=== PATIENT | female | born 1965 | race Caucasian/White ===

== ENCOUNTER → 2018-09-24 | Day surgery (SDC) | payer MEDICARE, OTHER ==
[2018-09-19 11:04] VITALS: BMI 38.0
[~2018-09-24] MED LIST: ALPRAZolam 0.25 MG TAB PO PRN; ALPRAZolam 0.5 MG TAB PO PRN; ASPIRIN 325 MG TAB PO STA; ATORVASTATIN 80 MG TAB PO STA; HEPARIN SODIUM 1,000 UN/ML (10ML VL) ONE; IOPAMIDOL-370 125ML BTL INJ ONE; IV FLUID CONTINUATION 950 ML IV ONE; LIDOCAINE 1% INJ 10MG/ML (20 ML MDV) ONE; LIDOCAINE 1% INJ 10MG/ML (20 ML MDV) SQ ONE; MIDAZOLAM 2 MG/2 ML VIAL IV ONE; MIDAZOLAM 2 MG/2 ML VIAL ONE; NITROGLYCERIN SL TABS 0.4 MG TAB SUBLINGUAL PRN; RX INFO: IV CONTRAST WAS GIVEN 1 EACH MISC MISCELLANE PRN; SODIUM CHLORIDE 0.9% 1,000 ML IV SCH; SODIUM CHLORIDE 0.9% 1,000 ML in EMPTY BAG 1 BAG IV ONE; VERAPAMIL 2.5 MG/ML 2 ML AMP ONE; VERAPAMIL SYRINGE (5 MG/10 ML) INTRAARTER ONE
[2018-09-24 12:07] VITALS: RESP 20
[2018-09-24 13:11] LABS: Glucose,Whole Blood 179 mg/dL (75-99)
--- NOTE | 2018-09-24 13:19 | LTR ---
September 24, 2018 Re: Tahmina Osorio Dear Dr. Cedeño: Ms. Tahmina Osorio continued to have chest discomfort. As you know, she does have diabetes, hypertension, and dyslipidemia. Given her ongoing chest discomfort and multiple risk factors for CAD, I did proceed with a heart catheterization on her. The heart catheterization showed normal coronaries. I want to thank you for allowing me to participate in her care and please do not hesitate to call if you have any question or concern. Sincerely, MD CHAU Green[place] / SAIGE: [id number] /
--- NOTE | 2018-09-24 14:04 | CC ---
CARDIAC CATHETERIZATION REPORT DATE OF SERVICE: 09/24/2018 PERFORMING PHYSICIAN: Silvestre Martin MD, Wireless Sales Associate. PROCEDURE PERFORMED: 1. Selective right and left coronary angiogram. 2. Left heart catheterization. INDICATION: This is a pleasant 52-year-old female patient with known diabetes, hypertension, and dyslipidemia who continues to struggle with chest discomfort in spite of maximized medical treatment. Given her risk factors and the continuous chest discomfort, I would recommend proceeding with coronary angiogram. APPROACH: Right radial artery. COMPLICATION: None. LEVEL OF SEDATION: Moderate sedation length of 14 minutes. PROCEDURE DESCRIPTION: After obtaining an informed consent, the patient was brought to the cardiac optical laboratory manager. The right radial artery was cannulated using micropuncture technique and a micropuncture wire passed easily, then I placed a 5-Comoran sheath in the right radial artery. After that, I gave the patient 2 mg of verapamil IA and 9,000 units of heparin IV. Selective right and left coronary angiogram was performed. After that, using JR4 and JL3.5 catheters, left heart catheterization was performed using 5-[place]or[place] pigtail catheter. The procedure was completed without any complication. SELECTIVE CORONARY ANGIOGRAM: 1. The right coronary artery is a large caliber vessel. It is a dominant vessel. The RCA is angiographically normal. It distally bifurcates into PDA and PLV branches, both are angiographically normal. 2. The left main is angiographically normal. It bifurcates into the left circumflex, ramus intermedius, and left anterior descending artery. 3. The left circumflex is a large caliber vessel. It is a nondominant vessel. The proximal circumflex appeared to be angiographically normal. The mid circumflex is normal and gives rise into two obtuse marginal branches, appeared to be angiographically normal and the circumflex continued after that as a small-caliber vessel in the AV groove. 4. The ramus intermedius is a moderate caliber vessel and seems to be angiographically normal. 5. The LAD, the proximal LAD is angiographically normal. The mid LAD is normal and gives rise into a large diagonal branch which appeared to be angiographically normal. The LAD distally appeared to be angiographically normal. HEMODYNAMICS: The left ventricular end-diastolic pressure was 10 mmHg and no significant gradient was seen across the aortic valve. CONCLUSION: 1. Normal coronary angiogram. 2. Normal left ventricular end-diastolic pressure. 3. No significant gradient across aortic valve. POSTPROCEDURE MANAGEMENT: 1. Medical treatment. 2. Follow up with the patient. CHAU / MAHNAZN: [id number] /
[2018-09-24 16:26] VITALS: TEMP 97.8
[2018-09-24 16:29] VITALS: PULSE 80
[2018-09-24 17:23] VITALS: BP 115/69
== END ==
LOC: CATHCVL 10:51
PROVIDERS: ATTEND Internal Medicine Interventional Cardiology
DX: I20.0 Unstable angina (principal); I11.0 Hypertensive heart disease with heart failure; I50.32 Chronic diastolic (congestive) heart failure; E66.9 Obesity, unspecified; Z68.38 Body mass index [BMI] 38.0-38.9, adult; E11.9 Type 2 diabetes mellitus without complications; Z79.84 Long term (current) use of oral hypoglycemic drugs; E78.5 Hyperlipidemia, unspecified; Z82.49 Family history of ischemic heart disease and other diseases of the circulatory system; Z79.899 Other long term (current) drug therapy; Z88.2 Allergy status to sulfonamides
CPT/HCPCS: 93458; C1769 ×2; C1894; J2250; J2001; J1644; Q9967

== ENCOUNTER 2019-09-11 13:48 | Day surgery (SDC) | payer MEDICARE, OTHER ==
[2019-09-11] MEDS ORDERED: LACTATED RINGERS 1,000 ML IV SCH (14:17)
[2019-09-11] MEDS ORDERED: ONDANSETRON 4 MG/2 ML VIAL IVP PRN (14:17)
[2019-09-11] MEDS ORDERED: HYDROmorphone 0.5 MG/0.5 ML SYRINGE IVP PRN (14:17)
[2019-09-11 14:29] VITALS: RESP 16; TEMP 97.9
[2019-09-11] MEDS ORDERED: LIDOCAINE 1% 20 ML VIAL (10MG/ML) FOR IV START INTRADERMA ONE (14:42)
[2019-09-11 14:44] LABS: Glucose,Whole Blood 116 mg/dL (75-99)
[2019-09-11] MEDS ORDERED: LIDOCAINE 1% INJ 10MG/ML (20 ML MDV) ONE (15:21)
[2019-09-11] MEDS ORDERED: PROPOFOL 10 MG/ML 20 ML VIAL IV ONE (15:21)
[2019-09-11] MEDS ORDERED: KETAMINE 10 MG/ML 20 ML VIAL ONE (15:21)
--- NOTE | 2019-09-11 15:51 | P.PCN ---
Date of Procedure: 09/11/19 Description of Procedure: BRIEF HISTORY: Patient is a 58-year-old female who presents for outpatient evaluation with EGD of symptoms of epigastric abdominal pain, and diarrhea. PROCEDURE PERFORMED: Esophagogastroduodenoscopy with biopsy. PREOPERATIVE DIAGNOSIS: Diarrhea, epigastric abdominal pain. ESTIMATED BLOOD LOSS: Minimal. IV sedation per anesthesia. PROCEDURE: After informed consent was obtained, the patient was brought into the endoscopy unit. IV sedation was administered by Anesthesia under continuous monitoring. Initially the Olympus GIF-190 video endoscope was inserted into the mouth. Esophagus intubated without any difficulty. It was gradually advanced into the stomach and duodenum and carefully examined. The bulb and the second part of the duodenum appeared normal, with biopsies taken to rule out celiac sprue. The scope at this time was withdrawn to the stomach, adequately insufflated with air, and upon careful examination, mucosa of the antrum, body, cardia and the fundus appeared normal, except for some mild scattered erythema in the antrum an d body suggestive of mild gastritis with biopsies taken. A few diminutive gastric polyps were seen and biopsied. The scope was then withdrawn into the esophagus. The GE junction was located at 36 cm from the incisors and biopsied. The esophagus appeared normal. There were no erosions or ulcerations seen and the patient tolerated the procedure well. IMPRESSION: 1. Mild gastritis antrum and body, biopsied. 2. Gastric polyps (likely fundic gland polyps, biopsied. 3. Duodenal biopsies. 4. GE junction biopsies. RECOMMENDATIONS: The findings of this examination were discussed with the patient and her friend. Okay to resume diet and medications. Await pathology from biopsies. Follow up in gastroenterology clinic as previously scheduled.
[2019-09-11 16:14] VITALS: BP 134/84; PULSE 84
== END 2019-09-11 16:35 | disposition home or self-care (01) ==
LOC: ORWHC2ENDO 13:48
PROVIDERS: ATTEND Internal Medicine
DX: K29.50 Unspecified chronic gastritis without bleeding (principal); K31.7 Polyp of stomach and duodenum; I11.0 Hypertensive heart disease with heart failure; I50.9 Heart failure, unspecified; I25.10 Atherosclerotic heart disease of native coronary artery without angina pectoris; J45.909 Unspecified asthma, uncomplicated; I77.6 Arteritis, unspecified; F41.9 Anxiety disorder, unspecified; F32.9 Major depressive disorder, single episode, unspecified; G62.9 Polyneuropathy, unspecified; Z88.2 Allergy status to sulfonamides; Z79.899 Other long term (current) drug therapy; Z90.49 Acquired absence of other specified parts of digestive tract; Z87.19 Personal history of other diseases of the digestive system; Z98.890 Other specified postprocedural states; Z98.41 Cataract extraction status, right eye; Z98.42 Cataract extraction status, left eye
CPT/HCPCS: 43239; 88305; J2001; J2704

== ENCOUNTER 2022-03-05 23:00 | Emergency (ER) | payer MEDICARE, OTHER ==
[2022-03-06 01:07] VITALS: TEMP 97.6
--- NOTE | 2022-03-06 02:47 | ED ---
Psych HPI - General Chief Complaint: Psychiatric Symptoms Stated Complaint: Mental Health Time Seen by Provider: 03/06/22 01:28 Source: patient Mode of arrival: ambulatory - History of Present Illness MD Complaint: suicidal ideation, feels depressed -: days(s) Associated Psychiatric Symptoms: depression Quality: constant Improves With: none Worsens With: none Associated Symptoms: denies other symptoms - Related Data Home Medications Medication Instructions Recorded Confirmed Albuterol Nebulized [Ventolin 2.5 mg INHALATION DAILY 05/11/14 09/11/19 Nebulized] DULoxetine HCL [Cymbalta] 60 mg PO QAM 08/02/16 09/11/19 Furosemide [Lasix] 40 mg PO HS 08/02/16 09/11/19 Metoprolol Tartrate [Lopressor] 12.5 mg PO BID 08/02/16 09/11/19 Oxybutynin Xl [Ditropan XL] 5 mg PO DAILY 08/02/16 09/11/19 Potassium Chloride ER [K-Dur 20] 20 meq PO HS 08/02/16 09/11/19 Furosemide [Lasix] 80 mg PO DAILY 09/19/18 09/11/19 Lurasidone [Latuda] 40 mg PO DAILY 09/19/18 09/11/19 Omeprazole 20 mg PO DAILY 09/19/18 09/11/19 Potassium Chloride ER [K-Dur 20] 40 meq PO QAM 09/19/18 09/11/19 Saxagliptin HCl [Onglyza] 5 mg PO DAILY 09/11/19 09/11/19 metFORMIN HCL [Glucophage] 500 mg PO BID 09/11/19 09/11/19 Previous Rx's Medication Instructions Recorded lisinopriL [Zestril] 2.5 mg PO DAILY #30 tab 08/07/16 Allergies Allergy/AdvReac Type Severity Reaction Status Date / Time sulfamethoxazole Allergy Rash/Hives Verified 03/06/22 01:07 [From Bactrim] trimethoprim [From Bactrim] Allergy Rash/Hives Verified 03/06/22 01:07 Review of Systems ROS Statement: Those systems with pertinent positive or pertinent negative responses have been documented in the HPI. ROS Other: All systems not noted in ROS Statement are negative. Constitutional: Denies: fever Respiratory: Denies: cough, dyspnea Cardiovascular: Denies: chest pain, palpitations Gastrointestinal: Denies: abdominal pain, vomiting, diarrhea Genitourinary: Denies: dysuria, hematuria Musculoskeletal: Denies: back pain Neurological: Denies: headache, weakness Psychiatric: Reports: depression, suicidal thoughts. Denies: auditory hallucinations, visual hallucinations, homicidal thoughts Past Medical History Past Medical History: Asthma, Chest Pain / Angina, Heart Failure, Diabetes Mellitus, Eye Disorder, Hypertension, Osteoarthritis (OA), Vascular Disorder Additional Past Medical History / Comment(s): VASCULITIS STATES IN REMISSION, NEUROPATHY TIESHA LEGS, LIMITED VISION TIESHA EYES, EDEMA TIESHA LEGS, SOB WITH ACTIVITY History of Any Multi-Drug Resistant Organisms: None Reported Past Surgical History: Cholecystectomy, Heart Catheterization With Stent, Orthopedic Surgery Additional Past Surgical History / Comment(s): ARTHOSCOPY TIESHA KNEES, WRISTS SX, CATARACT SX TIESHA, SKIN BX Past Anesthesia/Blood Transfusion Reactions: No Reported Reaction Additional Past Anesthesia/Blood Transfusion Reaction / Comment(s): STATES "HARD TIME WAKING UP" Date of Last Stent Placement:: 2013 Past Psychological History: Anxiety, Depression Smoking Status: Never smoker Past Alcohol Use History: None Reported Past Drug Use History: None Reported - Past Family History Mother Family Medical History: No Reported History General Exam General appearance: alert, in no apparent distress Head exam: Present: atraumatic, normocephalic Eye exam: Present: normal appearance. Absent: scleral icterus, conjunctival injection Respiratory exam: Present: normal lung sounds bilaterally. Absent: respiratory distress, wheezes, rales, rhonchi, stridor Cardiovascular Exam: Present: regular rate, normal rhythm, normal heart sounds. Absent: systolic murmur, diastolic murmur, rubs, gallop GI/Abdominal exam: Present: soft. Absent: distended, tenderness, guarding Extremities exam: Present: normal inspection, normal capillary refill Neurological exam: Present: alert Psychiatric exam: Present: depressed, suicidal ideation. Absent: anxious, flat affect, manic, homicidal ideation Skin exam: Present: warm, dry, intact, normal color. Absent: rash Course Vital Signs 03/06/22 01:02 Temperature 97.6 F Pulse Rate 63 Respiratory 19 Rate Blood Pressure 172/82 O2 Sat by Pulse 100 Oximetry Disposition Clinical Impression: Depression Disposition: HOME SELF-CARE Condition: Good Instructions (If sedation given, give patient instructions): Mood Disorders (ED) Is patient prescribed a controlled substance at d/c from ED?: No Referrals: Elsa Cedeño MD [Primary Care Provider] - 1-2 days
[2022-03-06 05:38] VITALS: BP 142/84; PULSE 64; RESP 18
== END 2022-03-06 05:42 | disposition home or self-care (01) ==
LOC: EC 23:00
DX: F32.A Depression, unspecified (principal); J45.909 Unspecified asthma, uncomplicated; E11.9 Type 2 diabetes mellitus without complications; I10 Essential (primary) hypertension; Z88.2 Allergy status to sulfonamides; Z88.1 Allergy status to other antibiotic agents
CPT/HCPCS: 82075; 99284

== ENCOUNTER 2023-02-22 13:36 | Inpatient (IN) | payer MEDICARE, OTHER ==
--- NOTE | 2023-02-22 14:40 | ED ---
Skin/Abscess/FB HPI - General Chief complaint: Skin/Abscess/Foreign Body Stated complaint: cellulitis on buttocks Time Seen by Provider: 02/22/23 14:29 Source: patient, RN notes reviewed, old records reviewed Mode of arrival: wheelchair Limitations: no limitations - History of Present Illness Initial comments: This is a nontoxic-appearing 57-year-old female that presents to the emergency room, sent by her visiting nurse for rash to her genitals. Patient states that she has been on topical powders and creams with no improvement. This is been ongoing since October. She is seeing Dr. Yeboah and Dr. Cedeño. Does have a history of asthma, chest pain, diabetes, COPD and vasculitis. MD complaint: rash -: month(s) (4) Location: buttocks, genitals Severity scale (1-10): 5 Quality: constant Consistency: constant Improves with: none Associated symptoms: denies other symptoms Treatments Prior to Arrival: OTC topical medication - Related Data Home Medications Medication Instructions Recorded Confirmed Albuterol Nebulized [Ventolin 2.5 mg INHALATION RT-QID PRN 05/11/14 02/22/23 Nebulized] DULoxetine HCL [Cymbalta] 60 mg PO BID 08/02/16 02/22/23 Oxybutynin Xl [Ditropan XL] 5 mg PO DAILY 08/02/16 02/22/23 Potassium Chloride ER [K-Dur 20] 20 meq PO TID 08/02/16 02/22/23 Furosemide [Lasix] 80 mg PO DAILY 09/19/18 02/22/23 Saxagliptin HCl [Onglyza] 5 mg PO DAILY 09/11/19 02/22/23 metFORMIN HCL [Glucophage] 500 mg PO BID 09/11/19 02/22/23 Acetaminophen Tab [Tylenol Tab] 1,000 mg PO Q6HR PRN 02/22/23 02/22/23 Acetaminophen-Codeine 300-30mg 1 tab PO Q6H PRN 02/22/23 02/22/23 [Tylenol w/codeine #3] Aspirin EC [Ecotrin Low Dose] 81 mg PO DAILY 02/22/23 02/22/23 Budesonide/Formoterol Fumarate 2 puff INHALATION RT-BID PRN 02/22/23 02/22/23 [Symbicort 80-4.5 Mcg Inhaler] Cephalexin [Keflex] 500 mg PO QID 02/22/23 02/22/23 Dicyclomine [Bentyl] 10 mg PO TID PRN 02/22/23 02/22/23 Fluticasone Nasal [place] [Flonase 2 spray EA NOSTRIL DAILY 02/22/23 02/22/23 Nasal [place]] Lurasidone [Latuda] 80 mg PO HS 02/22/23 02/22/23 Metoprolol Tartrate [Lopressor] 12.5 mg PO BID 02/22/23 02/22/23 Midodrine [ProAmatine] 2.5 mg PO BID 02/22/23 02/22/23 Montelukast [Singulair] 10 mg PO DAILY 02/22/23 02/22/23 Nitroglycerin Sl Tabs [Nitrostat] 0.4 mg SUBLINGUAL Q5M PRN 02/22/23 02/22/23 Nystatin [Nystop] 1 applic TOPICAL BID 02/22/23 02/22/23 OLANZapine [ZyPREXA] 5 mg PO BID 02/22/23 02/22/23 Repaglinide [Prandin] 1 mg PO TID 02/22/23 02/22/23 Rosuvastatin [Crestor] 10 mg PO HS 02/22/23 02/22/23 metOLazone [Zaroxolyn] 2.5 mg PO DAILY 02/22/23 02/22/23 Allergies Allergy/AdvReac Type Severity Reaction Status Date / Time sulfamethoxazole Allergy Rash/Hives Verified 02/22/23 15:30 [From Bactrim] trimethoprim [From Bactrim] Allergy Rash/Hives Verified 02/22/23 15:30 Review of Systems ROS Statement: Those systems with pertinent positive or pertinent negative responses have been documented in the HPI. ROS Other: All systems not noted in ROS Statement are negative. Past Medical History Past Medical History: Asthma, Chest Pain / Angina, Heart Failure, COPD, Diabetes Mellitus, Eye Disorder, Hypertension, Osteoarthritis (OA), Vascular Disorder Additional Past Medical History / Comment(s): VASCULITIS STATES IN REMISSION, NEUROPATHY TIESAH LEGS, LIMITED VISION TIESHA EYES, EDEMA TIESHA LEGS, SOB WITH ACTIVITY History of Any Multi-Drug Resistant Organisms: None Reported Past Surgical History: Cholecystectomy, Heart Catheterization With Stent, Orthopedic Surgery Additional Past Surgical History / Comment(s): ARTHOSCOPY TIESHA KNEES, WRISTS SX, CATARACT SX TIESHA, SKIN BX Past Anesthesia/Blood Transfusion Reactions: No Reported Reaction Additional Past Anesthesia/Blood Transfusion Reaction / Comment(s): STATES "HARD TIME WAKING UP" Date of Last Stent Placement:: 2013 Past Psychological History: Anxiety, Depression Smoking Status: Never smoker Past Alcohol Use History: None Reported Past Drug Use History: None Reported - Past Family History Mother Family Medical History: No Reported History General Exam Limitations: no limitations General appearance: alert, in no apparent distress Head exam: Present: atraumatic Eye exam: Present: normal appearance. Absent: scleral icterus, conjunctival injection, periorbital swelling, periorbital tenderness Respiratory exam: Absent: respiratory distress, accessory muscle use Cardiovascular Exam: Present: regular rate GI/Abdominal exam: Present: soft. Absent: distended, tenderness, guarding, rebound, rigid Extremities exam: Present: full ROM, normal capillary refill. Absent: tenderness, pedal edema Neurological exam: Present: alert, oriented X3 Psychiatric exam: Present: normal affect, normal mood Skin exam: Present: warm, rash (Cellulitis bilateral groin, mons pubis, perirectal, approximately 0.5cm fissure ) Course Vital Signs 02/22/23 13:38 Temperature 98.1 F Pulse Rate 83 Respiratory 20 Rate Blood Pressure 106/69 O2 Sat by Pulse 97 Oximetry Medical Decision Making - Medical Decision Making Labs show no evidence of leukocytosis. Sodium is 121, potassium is 2.6, chloride is 69, CO2 of 40, creatinine 1.15, lactic acid negative. Patient is on diuretics. Serum and urine osmolality was ordered. She was given potassium supplementation and IV fluids 0.9 normal saline. Patient will be admitted with hypokalemia, hyponatremia, hypochloremia and cellulitis. Antibiotics were started for cellulitis. Dr. Yeboah placed on consult. Case discussed with Dr. Morales Was pt. sent in by a medical professional or institution ([facility], TALENT ACQUISITION ASSOCIATE, urgent care, hospital, or fdc...) When possible be specific @ -home care nurse Did you speak to anyone other than the patient for history (EMS, parent, family, police, friend...)? What history was obtained from this source @ -No Did you review nursing and triage notes (agree or disagree)? Why? @ -I reviewed and agree with nursing and triage notes Were old charts reviewed (outside hosp., previous admission, EMS record, old EKG, old radiological studies, urgent care reports/EKG's, fdc records)? Report findings @ -No old charts were reviewed Differential Diagnosis (chest pain, altered mental status, abdominal pain women, abdominal pain men, vaginal bleeding, weakness, fever, dyspnea, syncope, headache, dizziness, GI bleed, back pain, seizure, CVA, palpatations, mental health, musculoskeletal)? @ -Cellulitis, Berenice's gangrene, dehydration, abscess, electrolyte abnormality EKG interpreted by me (3pts min.). @ -n/a X-rays interpreted by me (1pt min.). @ -None done CT interpreted by me (1pt min.). @ -None done U/S interpreted by me (1pt. min.). @ -None done What testing was considered but not performed or refused? (CT, X-rays, U/S, labs)? Why? @ -None What meds were considered but not given or refused? Why? @ -None Did you discuss the management of the patient with other professionals (professionals i.e. , PA, TALENT ACQUISITION ASSOCIATE, lab, RT, psych nurse, social studies teacher, tile shader, teacher, animal park code enforcement officer, pillowcase cutter)? Give summary @ -No Was smoking cessation discussed for >3mins.? @ -No Was critical care preformed (if so, how long)? @ -No Were there social determinants of health that impacted care today? How? (Homelessness, low income, unemployed, alcoholism, drug addiction, transportation, low edu. Level, literacy, decrease access to med. care, [facility], rehab)? @ -No Was there de-escalation of care discussed even if they declined (Discuss DNR or withdrawal of care, Hospice)? DNR status @ -No What co-morbidities impacted this encounter? (DM, HTN, Smoking, COPD, CAD, Cancer, CVA, ARF, Chemo, Hep., AIDS, mental health diagnosis, sleep apnea, morbid obesity)? @ -Asthma, diabetes, COPD, vasculitis Was patient admitted / discharged? Hospital course, mention meds given and route, prescriptions, significant lab abnormalities, going to OR and other p ertinent info. @ -Admitted Undiagnosed new problem with uncertain prognosis? @ -No Drug Therapy requiring intensive monitoring for toxicity (Heparin, Nitro, Insulin, Cardizem)? @ -No Were any procedures done? @ -No Diagnosis/symptom? @ -Cellulitis, hyponatremia, hypokalemia, hypochloremia Acute, or Chronic, or Acute on Chronic? @ -Acute Uncomplicated (without systemic symptoms) or Complicated (systemic symptoms)? @ -Uncomplicated Side effects of treatment? @ -No Exacerbation, Progression, or Severe Exacerbation? @ -No Poses a threat to life or bodily function? How? (Chest pain, [place], [place], pneumonia, PE, COPD, DKA, ARF, appy, cholecystitis, CVA, Diverticulitis, Homicidal, Suicidal, threat to staff... and all critical care pts) @ -No - Lab Data Result diagrams: 02/22/23 14:51 02/22/23 14:51 Lab Results 02/22/23 02/22/23 02/22/23 Range/Units 14:51 14:51 14:51 WBC 10.5 (3.8-10.6) k/uL RBC 3.98 (3.80-5.40) m/uL Hgb 11.8 (11.4-16.0) gm/dL Hct 32.2 L (34.0-46.0) % MCV 80.8 (80.0-100.0) fL MCH 29.7 (25.0-35.0) pg MCHC 36.8 (31.0-37.0) g/dL RDW 12.7 (11.5-15.5) % Plt Count 528 H (150-450) k/uL MPV 7.1 Neutrophils % 86 % Lymphocytes % 6 % Monocytes % 6 % Eosinophils % 1 % Basophils % 0 % Neutrophils # 9.0 H (1.3-7.7) k/uL Lymphocytes # 0.7 L (1.0-4.8) k/uL Monocytes # 0.6 (0-1.0) k/uL Eosinophils # 0.1 (0-0.7) k/uL Basophils # 0.0 (0-0.2) k/uL Hyperchromasia Slight Sodium 121 L (137-145) mmol/L Potassium 2.6 L* (3.5-5.1) mmol/L Chloride 69 L* (98-107) mmol/L Carbon Dioxide 40 H (22-30) mmol/L Anion Gap 12 mmol/L BUN 13 (7-17) mg/dL Creatinine 1.15 H (0.52-1.04) mg/dL Est GFR (CKD-EPI)AfAm 62 (>60 ml/min/1.73 sqM) Est GFR (CKD-EPI)NonAf 53 (>60 ml/min/1.73 sqM) Glucose 103 H (74-99) mg/dL Plasma Lactic Acid Mat 1.8 (0.7-2.0) mmol/L Calcium 8.5 (8.4-10.2) mg/dL Total Bilirubin 0.4 (0.2-1.3) mg/dL AST 27 (14-36) U/L ALT 18 (4-34) U/L Alkaline Phosphatase 97 (38-126) U/L Total Protein 6.9 (6.3-8.2) g/dL Albumin 3.9 (3.5-5.0) g/dL Disposition Clinical Impression: Cellulitis of perineum, Hypokalemia, Hyponatremia, Hypochloremia Disposition: ADMITTED IP TO THIS HOSP Referrals: Elsa Cedeño MD [Primary Care Provider] - 1-2 days Decision Date: 02/22/23 Decision Time: 15:50
[2023-02-22 15:14] LABS: Albumin 3.9 g/dL (3.5-5.0); Calcium 8.5 mg/dL (8.4-10.2); Total Bilirubin 0.4 mg/dL (0.2-1.3); Total Protein 6.9 g/dL (6.3-8.2)
[2023-02-22 15:24] LABS: Potassium 2.6 mmol/L (3.5-5.1)
[2023-02-22] MEDS ORDERED: Potassium Replacement Protocol 1 EACH MISC MISCELLANE PRN (15:42)
[2023-02-22] MEDS ORDERED: SODIUM CHLORIDE 0.9% 1,000 ML IV SCH (15:45)
[2023-02-22] MEDS ORDERED: cefTRIAXone IN SWFI 1,000 MG/10 ML SYRINGE IVP STA (15:47)
[2023-02-22] MEDS ORDERED: metroNIDAZOLE-NS PMX 500 MG in SALINE 1 100ML.BAG IVPB STA (15:49)
[2023-02-22 15:58] LABS: Basophils % (A) 0 %; Eosinophils # (A) 0.1 k/uL (0-0.7); Eosinophils % (A) 1 %; HCT 32.2 % (34.0-46.0); HGB 11.8 gm/dL (11.4-16.0); Hyperchromasia Slight; Lymphocytes # (A) 0.7 k/uL (1.0-4.8); Lymphocytes % (A) 6 %; MCH 29.7 pg (25.0-35.0); MCHC 36.8 g/dL (31.0-37.0); MCV 80.8 fL (80.0-100.0); Mean Platelet Volume 7.1; Monocytes # (A) 0.6 k/uL (0-1.0); Monocytes % (A) 6 %; Neutrophils % (A) 86 %; Platelet Count 528 k/uL (150-450); RBC 3.98 m/uL (3.80-5.40); RDW 12.7 % (11.5-15.5); WBC 10.5 k/uL (3.8-10.6)
[2023-02-22] MEDS ORDERED: NALOXONE 0.4 MG/ML 1 ML VIAL IV PRN (16:09)
[2023-02-22] MEDS ORDERED: ACETAMINOPHEN TAB 325 MG TAB PO PRN (16:09)
[2023-02-22] MEDS: POTASSIUM BICARBONATE/CIT AC 20 MEQ TABLET.EFF NG-TUBE SCH ×3 (16:22→19:17)
[2023-02-22] MEDS: POTASSIUM CHLORIDE ER 20 MEQ TAB.ER PO SCH ×3 (16:22→19:17)
[2023-02-22] MEDS ORDERED: DICYCLOMINE 10 MG CAP PO PRN (18:51)
[2023-02-22] MEDS ORDERED: SYMBICORT 80-4.5 MCG INHALER INHALATION PRN (18:51)
[2023-02-22] MEDS ORDERED: ALBUTEROL NEBULIZED 2.5 MG/3 ML INHALATION PRN (18:51)
[2023-02-22] MEDS ORDERED: NITROGLYCERIN SL TABS 0.4 MG TAB SUBLINGUAL PRN (18:51)
[2023-02-22] MEDS ORDERED: DEXTROSE 50% SYRINGE 50 ML IVP PRN ×2 (19:01)
[2023-02-22] MEDS ORDERED: DULoxetine HCL 60 MG CAPSULE.DR PO SCH (21:00)
[2023-02-22 21:11] LABS: African American GFR (CKD) 75 (>60 ml/min/1.73 sqM); Blood Urea Nitrogen 12 mg/dL (7-17); Calcium 8.4 mg/dL (8.4-10.2); Glucose 144 mg/dL (74-99); Magnesium 1.3 mg/dL (1.6-2.3); Non-African American GFR(CKD) 65 (>60 ml/min/1.73 sqM)
[2023-02-22 21:17] LABS: Anion Gap 15 mmol/L; Carbon Dioxide 37 mmol/L (22-30)
[2023-02-22 21:20] LABS: Chloride 66 mmol/L (98-107); Sodium 118 mmol/L (137-145)
[2023-02-22] MEDS: INSULIN ASPART (NovoLOG) 100 UNIT/ML VIAL SQ SCH (21:23)
[2023-02-22 21:32] LABS: Glucose,Whole Blood 139 mg/dL (70-110)
[2023-02-22] MEDS ORDERED: Magnesium Replacement Protocol 1 EACH MISC MISCELLANE PRN (21:34)
[2023-02-22] MEDS: Acetaminophen-Codeine 300-30mg TAB PO PRN (21:36)
[2023-02-22] MEDS: ATORVASTATIN 20 MG TAB PO SCH (21:36)
[2023-02-22] MEDS: METOPROLOL TARTRATE 12.5 MG TAB PO SCH (21:36)
[2023-02-22] MEDS ORDERED: SODIUM CHLORIDE TAB 1 GM TAB PO STA (22:06)
[2023-02-22] MEDS: MAGNESIUM SULFATE-D5W PMX 1 GM in DEXTROSE/WATER 1 100ML.BAG IVPB SCH ×2 (22:21→22:58)
[2023-02-22 23:51] LABS: African American GFR (CKD) 75 (>60 ml/min/1.73 sqM); Anion Gap 11 mmol/L; Blood Urea Nitrogen 12 mg/dL (7-17); Calcium 8.3 mg/dL (8.4-10.2); Glucose 103 mg/dL (74-99); Non-African American GFR(CKD) 65 (>60 ml/min/1.73 sqM); Potassium 3.4 mmol/L (3.5-5.1)
[2023-02-22 23:57] LABS: Carbon Dioxide 40 mmol/L (22-30)
[2023-02-23] MEDS: HEPARIN SODIUM,PORCINE/PF 5,000 UNIT/0.5 ML SYRINGE SQ SCH ×4 (00:07→23:32)
[2023-02-23] MEDS: MAGNESIUM SULFATE-D5W PMX 1 GM in DEXTROSE/WATER 1 100ML.BAG IVPB SCH ×2 (00:08→01:40)
[2023-02-23 00:49] LABS: Sodium 117 mmol/L (137-145)
[2023-02-23 00:50] LABS: Chloride 66 mmol/L (98-107)
[2023-02-23] MEDS: Acetaminophen-Codeine 300-30mg TAB PO PRN ×2 (06:04→16:37)
[2023-02-23] MEDS: metFORMIN 500 MG TAB PO SCH ×2 (06:04→17:23)
[2023-02-23] MEDS: MIDODRINE 5 MG TAB PO SCH ×2 (06:04→17:23)
[2023-02-23 06:10] LABS: Glucose,Whole Blood 124 mg/dL (70-110)
[2023-02-23] MEDS: INSULIN ASPART (NovoLOG) 100 UNIT/ML VIAL SQ SCH ×4 (07:52→22:08)
[2023-02-23] MEDS: REPAGLINIDE 1 MG TAB PO SCH ×3 (07:52→17:23)
[2023-02-23 08:28] LABS: African American GFR (CKD) >90 (>60 ml/min/1.73 sqM); Blood Urea Nitrogen 11 mg/dL (7-17); Calcium 8.7 mg/dL (8.4-10.2); Glucose 128 mg/dL (74-99); Magnesium 2.5 mg/dL (1.6-2.3); Non-African American GFR(CKD) 85 (>60 ml/min/1.73 sqM); Potassium 2.9 mmol/L (3.5-5.1); Sodium 120 mmol/L (137-145)
[2023-02-23 08:35] LABS: Anion Gap 11 mmol/L; Carbon Dioxide 38 mmol/L (22-30)
[2023-02-23 08:40] LABS: Chloride 71 mmol/L (98-107)
[2023-02-23] MEDS: METOPROLOL TARTRATE 12.5 MG TAB PO SCH ×2 (08:50→22:08)
[2023-02-23] MEDS: POTASSIUM CHLORIDE ER 20 MEQ TAB.ER PO SCH ×7 (08:50→22:08)
[2023-02-23] MEDS: FAMOTIDINE 20 MG TAB PO SCH (08:50)
[2023-02-23] MEDS: MONTELUKAST 10 MG TAB PO SCH (08:50)
[2023-02-23] MEDS: LINAGLIPTIN 5 MG TABLET PO SCH (08:50)
[2023-02-23] MEDS: ASPIRIN 81 MG PO SCH (08:50)
[2023-02-23] MEDS: FLUTICASONE 50MCG/SPRAY NASAL 16GM EA NOSTRIL SCH (08:53)
[2023-02-23] MEDS ORDERED: OXYBUTYNIN XL 5 MG TAB.ER.24 PO SCH (09:00)
[2023-02-23 11:23] LABS: Glucose,Whole Blood 104 mg/dL (70-110)
[2023-02-23] MEDS ORDERED: SODIUM CHLORIDE TAB 1 GM TAB PO STA (12:09)
--- NOTE | 2023-02-23 12:13 | P.NPCON ---
History of Present Illness - Reason for Consult hyponatremia - History of Present Illness Reason for consultation: Hyponatremia History of present illness: Patient is a 57-year-old female seen in renal consultation for hyponatremia. Patient's sodium level on admission was 121 and she was given IV fluids. Subsequently the sodium level dropped to 117 and fluids were discontinued. She is currently maintained on fluid restriction and sodium level this morning was 120. Urine osmolality was 179 on admission. TSH normal. Cortisol level also in the normal range. She denies edema. Denies chest pain or shortness of breath. Patient given to the hospital after she was sent by her nurse due to rash in her groin. She was using topical creams been no significant improvement. Infectious disease has been consulted. Hemodynamically stable. Patient does have history of diabetes. I do see Lasix and metolazone and her home medication list. Patient denies history of any malignancy. Potassium has been low and is being aggressively replaced. No vomiting or diarrhea except 1 episode of vomiting yesterday. She is eating appetite is just fair. She has been drinking fluids but denies excessive fluid intake. She denies use of nonsteroidals. Denies personal history of kidney disease. Vital signs are stable. General: No acute distress. HEENT: Head exam is unremarkable. LUNGS: No audible rhonchi or wheezes. HEART: Rate and Rhythm are regular. ABDOMEN: Nontender, obese. EXTREMITITES: No edema. Past Medical History Past Medical History: Asthma, Chest Pain / Angina, Heart Failure, COPD, Diabetes Mellitus, Eye Disorder, Hypertension, Osteoarthritis (OA), Vascular Disorder Additional Past Medical History / Comment(s): VASCULITIS STATES IN REMISSION, NEUROPATHY TIESHA LEGS, LIMITED VISION TIESHA EYES, EDEMA TIESHA LEGS, SOB WITH ACTIVITY History of Any Multi-Drug Resistant Organisms: None Reported Past Surgical History: Cholecystectomy, Heart Catheterization With Stent, Orthopedic Surgery Additional Past Surgical History / Comment(s): ARTHOSCOPY TIESHA KNEES, WRISTS SX, CATARACT SX TIESHA, SKIN BX Past Anesthesia/Blood Transfusion Reactions: No Reported Reaction Additional Past Anesthesia/Blood Transfusion Reaction / Comment(s): STATES "HARD TIME WAKING UP" Date of Last Stent Placement:: 2013 Past Psychological History: Anxiety, Depression Smoking Status: Never smoker Past Alcohol Use History: None Reported Past Drug Use History: None Reported - Past Family History Mother Family Medical History: No Reported History Medications and Allergies Home Medications Medication Instructions Recorded Confirmed Type Albuterol Nebulized [Ventolin 2.5 mg INHALATION RT-QID PRN 05/11/14 02/22/23 History Nebulized] DULoxetine HCL [Cymbalta] 60 mg PO BID 08/02/16 02/22/23 History Oxybutynin Xl [Ditropan XL] 5 mg PO DAILY 08/02/16 02/22/23 History Potassium Chloride ER [K-Dur 20] 20 meq PO TID 08/02/16 02/22/23 History Furosemide [Lasix] 80 mg PO DAILY 09/19/18 02/22/23 History Saxagliptin HCl [Onglyza] 5 mg PO DAILY 09/11/19 02/22/23 History metFORMIN HCL [Glucophage] 500 mg PO BID 09/11/19 02/22/23 History Acetaminophen Tab [Tylenol Tab] 1,000 mg PO Q6HR PRN 02/22/23 02/22/23 History Acetaminophen-Codeine 300-30mg 1 tab PO Q6H PRN 02/22/23 02/22/23 History [Tylenol w/codeine #3] Aspirin EC [Ecotrin Low Dose] 81 mg PO DAILY 02/22/23 02/22/23 History Budesonide/Formoterol Fumarate 2 puff INHALATION RT-BID PRN 02/22/23 02/22/23 History [Symbicort 80-4.5 Mcg Inhaler] Cephalexin [Keflex] 500 mg PO QID 02/22/23 02/22/23 History Dicyclomine [Bentyl] 10 mg PO TID PRN 02/22/23 02/22/23 History Fluticasone Nasal [place] [Flonase 2 spray EA NOSTRIL DAILY 02/22/23 02/22/23 History Nasal [place]] Lurasidone [Latuda] 80 mg PO HS 02/22/23 02/22/23 History Metoprolol Tartrate [Lopressor] 12.5 mg PO BID 02/22/23 02/22/23 History Midodrine [ProAmatine] 2.5 mg PO BID 02/22/23 02/22/23 History Montelukast [Singulair] 10 mg PO DAILY 02/22/23 02/22/23 History Nitroglycerin Sl Tabs [Nitrostat] 0.4 mg SUBLINGUAL Q5M PRN 02/22/23 02/22/23 History Nystatin [Nystop] 1 applic TOPICAL BID 02/22/23 02/22/23 History OLANZapine [ZyPREXA] 5 mg PO BID 02/22/23 02/22/23 History Repaglinide [Prandin] 1 mg PO TID 02/22/23 02/22/23 History Rosuvastatin [Crestor] 10 mg PO HS 02/22/23 02/22/23 History metOLazone [Zaroxolyn] 2.5 mg PO DAILY 02/22/23 02/22/23 History Allergies Allergy/AdvReac Type Severity Reaction Status Date / Time sulfamethoxazole Allergy Rash/Hives Verified 02/22/23 15:30 [From Bactrim] trimethoprim [From Bactrim] Allergy Rash/Hives Verified 02/22/23 15:30 Physical Exam Vitals: Vital Signs Temp Pulse Pulse Resp BP BP Pulse Ox 02/23/23 08:00 98.0 F 78 17 110/64 93 L 02/23/23 00:31 98.0 F 79 17 94/54 92 L 02/22/23 21:00 98.2 F 82 18 107/70 95 02/22/23 20:12 98.2 F 75 18 114/87 96 02/22/23 19:09 98.1 F 81 17 124/54 94 L 02/22/23 13:38 98.1 F 83 20 106/69 97 Intake and Output 02/22/23 02/23/23 02/23/23 22:59 06:59 14:59 Intake Total 640 Balance 640 Intake: Intake, IV Titration 400 Amount Magnesium Sulfate-D5w Pmx 400 1 gm In Dextrose/Water 1 100ml.bag @ 100 mls/hr IVPB Q1H [facility] Rx#: [id number] Oral 240 Other: # Voids 2 # Bowel Movements 1 Weight 104.326 kg Results - Lab Results Most recent lab results Calcium 8.7 mg/dL (8.4-10.2) 02/23/23 07:36 Magnesium 2.5 mg/dL (1.6-2.3) H 02/23/23 07:36 02/22/23 14:51 02/23/23 07:36 Assessment and Plan Plan: Assessment: 1. Hyponatremia from poor solute intake and use of thiazide diuretic. Additionally medications like Cymbalta can induce SIADH. Urine osmolality 179. Sodium level dropped with IV fluids and is improving with fluid restrictio. S odium level 120 this morning. TSH and cortisol level normal. 2. Hypokalemia from use of diuretics. Magnesium normal. 3. Diabetes mellitus. 4. History of CHF. Unknown ejection fraction. 5. Groin cellulitis. ID consulted. Plan: Maintain fluid restriction. Encourage oral intake, especially protein. Check chest x-ray. Repeat one more dose of sodium chloride tablet. Repeat sodium level this evening. Hold off on diuretics. Follow-up PTH related peptide. Continue to replace potassium. Thank you for the consultation. I will continue to follow the patient with you during her hospital stay.
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
--- NOTE | 2023-02-23 13:52 | XR ---
EXAMINATION TYPE: XR chest 1V DATE OF EXAM: 02/23/2023 COMPARISON: 08/02/2016 INDICATION: Acute kidney insufficiency TECHNIQUE: Single frontal view of the chest is obtained. FINDINGS: The heart size is normal. The pulmonary vasculature is normal. Minimal left lower lobe plate atelectasis is evident. Lungs are otherwise clear IMPRESSION: 1. Minimal left basilar platelike atelectasis.
[2023-02-23] MEDS: FLUCONAZOLE 100 MG TAB PO SCH (14:08)
[2023-02-23] MEDS: NYSTATIN 100,000 UNIT/GM POWD 15 GM TOPICAL SCH ×2 (14:08→22:09)
[2023-02-23 15:25] LABS: African American GFR (CKD) 88 (>60 ml/min/1.73 sqM); Blood Urea Nitrogen 11 mg/dL (7-17); Calcium 8.7 mg/dL (8.4-10.2); Glucose 129 mg/dL (74-99); Non-African American GFR(CKD) 76 (>60 ml/min/1.73 sqM); Potassium 3.7 mmol/L (3.5-5.1); Sodium 120 mmol/L (137-145)
[2023-02-23 15:32] LABS: Anion Gap 11 mmol/L; Carbon Dioxide 38 mmol/L (22-30)
[2023-02-23 15:37] LABS: Chloride 71 mmol/L (98-107)
[2023-02-23 16:41] LABS: Glucose,Whole Blood 101 mg/dL (70-110)
[2023-02-23] MEDS: AMPICILLIN-SULBACTAM 3 GM in SODIUM CHLORIDE 0.9% 100 ML IVPB SCH ×2 (19:21→23:31)
[2023-02-23] MEDS ORDERED: TOLVAPTAN 15 MG TABLET PO ONE (20:30)
[2023-02-23 22:07] LABS: Glucose,Whole Blood 81 mg/dL (70-110)
[2023-02-23] MEDS: ATORVASTATIN 20 MG TAB PO SCH (22:08)
--- NOTE | 2023-02-23 22:50 | P.CONS ---
History of Present Illness - Reason for Consult Consult date: 02/23/23 - History of Present Illness Patient is a 57-year-old female with a past medical history significant for COPD diabetes mellitus hypertension history of recurrent groin area cutaneous kidney disease and cellulitis presenting to the ER with worsening swelling and redness especially to the left groin area patient has been complaining of pain which is sharp 5-6 out of 10 no radiation did have minimal drainage from the left groin area patient did have some chills however no high- grade fevers were noticed on presentation to the hospital patient did have a normal white count with a left shift creatinine has been normal did have low potassium levels are normal patient did receive a dose of Rocephin in the ER has been admitted to hospital infectious disease was consulted for further management of antifungal and antibiotic therapy Past Medical History Past Medical History: Asthma, Chest Pain / Angina, Heart Failure, COPD, Diabetes Mellitus, Eye Disorder, Hypertension, Osteoarthritis (OA), Vascular Disorder Additional Past Medical History / Comment(s): VASCULITIS STATES IN REMISSION, NEUROPATHY TIESHA LEGS, LIMITED VISION TIESHA EYES, EDEMA TIESHA LEGS, SOB WITH ACTIVITY History of Any Multi-Drug Resistant Organisms: None Reported Past Surgical History: Cholecystectomy, Heart Catheterization With Stent, Orthopedic Surgery Additional Past Surgical History / Comment(s): ARTHOSCOPY TIESHA KNEES, WRISTS SX, CATARACT SX TIESHA, SKIN BX Past Anesthesia/Blood Transfusion Reactions: No Reported Reaction Additional Past Anesthesia/Blood Transfusion Reaction / Comm: STATES "HARD TIME WAKING UP" Date of Last Stent Placement:: 2013 Past Psychological History: Anxiety, Depression Smoking Status: Never smoker Past Alcohol Use History: None Reported Past Drug Use History: None Reported - Past Family History Mother Family Medical History: No Reported History Medications and Allergies Home Medications Medication Instructions Recorded Confirmed Type Albuterol Nebulized [Ventolin 2.5 mg INHALATION RT-QID PRN 05/11/14 02/22/23 History Nebulized] DULoxetine HCL [Cymbalta] 60 mg PO BID 08/02/16 02/22/23 History Oxybutynin Xl [Ditropan XL] 5 mg PO DAILY 08/02/16 02/22/23 History Potassium Chloride ER [K-Dur 20] 20 meq PO TID 08/02/16 02/22/23 History Furosemide [Lasix] 80 mg PO DAILY 09/19/18 02/22/23 History Saxagliptin HCl [Onglyza] 5 mg PO DAILY 09/11/19 02/22/23 History metFORMIN HCL [Glucophage] 500 mg PO BID 09/11/19 02/22/23 History Acetaminophen Tab [Tylenol Tab] 1,000 mg PO Q6HR PRN 02/22/23 02/22/23 History Acetaminophen-Codeine 300-30mg 1 tab PO Q6H PRN 02/22/23 02/22/23 History [Tylenol w/codeine #3] Aspirin EC [Ecotrin Low Dose] 81 mg PO DAILY 02/22/23 02/22/23 History Budesonide/Formoterol Fumarate 2 puff INHALATION RT-BID PRN 02/22/23 02/22/23 History [Symbicort 80-4.5 Mcg Inhaler] Cephalexin [Keflex] 500 mg PO QID 02/22/23 02/22/23 History Dicyclomine [Bentyl] 10 mg PO TID PRN 02/22/23 02/22/23 History Fluticasone Nasal [place] [Flonase 2 spray EA NOSTRIL DAILY 02/22/23 02/22/23 History Nasal [place]] Lurasidone [Latuda] 80 mg PO HS 02/22/23 02/22/23 History Metoprolol Tartrate [Lopressor] 12.5 mg PO BID 02/22/23 02/22/23 History Midodrine [ProAmatine] 2.5 mg PO BID 02/22/23 02/22/23 History Montelukast [Singulair] 10 mg PO DAILY 02/22/23 02/22/23 History Nitroglycerin Sl Tabs [Nitrostat] 0.4 mg SUBLINGUAL Q5M PRN 02/22/23 02/22/23 History Nystatin [Nystop] 1 applic TOPICAL BID 02/22/23 02/22/23 History OLANZapine [ZyPREXA] 5 mg PO BID 02/22/23 02/22/23 History Repaglinide [Prandin] 1 mg PO TID 02/22/23 02/22/23 History Rosuvastatin [Crestor] 10 mg PO HS 02/22/23 02/22/23 History metOLazone [Zaroxolyn] 2.5 mg PO DAILY 02/22/23 02/22/23 History Allergies Allergy/AdvReac Type Severity Reaction Status Date / Time sulfamethoxazole Allergy Rash/Hives Verified 02/22/23 15:30 [From Bactrim] trimethoprim [From Bactrim] Allergy Rash/Hives Verified 02/22/23 15:30 Physical Exam Vitals: Vital Signs Temp Pulse Pulse Resp BP BP Pulse Ox 02/23/23 08:00 98.0 F 78 17 110/64 93 L 02/23/23 00:31 98.0 F 79 17 94/54 92 L 02/22/23 21:00 98.2 F 82 18 107/70 95 02/22/23 20:12 98.2 F 75 18 114/87 96 02/22/23 19:09 98.1 F 81 17 124/54 94 L 02/22/23 13:38 98.1 F 83 20 106/69 97 Intake and Output 02/22/23 02/23/23 02/23/23 22:59 06:59 14:59 Intake Total 640 Balance 640 Intake: Intake, IV Titration 400 Amount Magnesium Sulfate-D5w Pmx 400 1 gm In Dextrose/Water 1 100ml.bag @ 100 mls/hr IVPB Q1H [facility] Rx#: [id number] Oral 240 Other: # Voids 2 # Bowel Movements 1 Weight 104.326 kg Results CBC & Chem 7: 02/22/23 14:51 02/23/23 13:59 Labs: Abnormal Lab Results - Last 24 Hours (Table) 02/22/23 02/22/23 02/22/23 Range/Units 14:51 14:51 17:00 Hct 32.2 L (34.0-46.0) % Plt Count 528 H (150-450) k/uL Neutrophils # 9.0 H (1.3-7.7) k/uL Lymphocytes # 0.7 L (1.0-4.8) k/uL Sodium 121 L (137-145) mmol/L Potassium 2.6 L* (3.5-5.1) mmol/L Chloride 69 L* (98-107) mmol/L Carbon Dioxide 40 H (22-30) mmol/L Creatinine 1.15 H (0.52-1.04) mg/dL Glucose 103 H (74-99) mg/dL POC Glucose (mg/dL) (70-110) mg/dL Osmolality 251 L (280-301) mosm/kg Calcium (8.4-10.2) mg/dL Magnesium (1.6-2.3) mg/dL 02/22/23 02/22/23 02/22/23 Range/Units 20:08 21:22 22:25 Hct (34.0-46.0) % Plt Count (150-450) k/uL Neutrophils # (1.3-7.7) k/uL Lymphocytes # (1.0-4.8) k/uL Sodium 118 L* 117 L* (137-145) mmol/L Potassium 3.0 L 3.4 L (3.5-5.1) mmol/L Chloride 66 L* 66 L* (98-107) mmol/L Carbon Dioxide 37 H 40 H (22-30) mmol/L Creatinine (0.52-1.04) mg/dL Glucose 144 H 103 H (74-99) mg/dL POC Glucose (mg/dL) 139 H (70-110) mg/dL Osmolality (280-301) mosm/kg Calcium 8.3 L (8.4-10.2) mg/dL Magnesium 1.3 L (1.6-2.3) mg/dL 02/23/23 02/23/23 Range/Units 05:56 07:36 Hct (34.0-46.0) % Plt Count (150-450) k/uL Neutrophils # (1.3-7.7) k/uL Lymphocytes # (1.0-4.8) k/uL Sodium 120 L (137-145) mmol/L Potassium 2.9 L (3.5-5.1) mmol/L Chloride 71 L* (98-107) mmol/L Carbon Dioxide 38 H (22-30) mmol/L Creatinine (0.52-1.04) mg/dL Glucose 128 H (74-99) mg/dL POC Glucose (mg/dL) 124 H (70-110) mg/dL Osmolality (280-301) mosm/kg Calcium (8.4-10.2) mg/dL Magnesium 2.5 H (1.6-2.3) mg/dL Assessment and Plan Plan: 1patient with extensive cutaneous candidiasis especially involving the left groin area and concern for possible secondary cellulitis likely from gram- positive skin milka underlying gram-negative infection not entirely excluded wi th diabetes and location of the cellulitis 2-we will apply nystatin powder to the groin along with oral Diflucan 3-we will add Unasyn 3 g every 6 hours for secondary cellulitis We will follow on clinical condition and cultures to further adjust medication if needed Thank you for this consultation we will follow the patient along with you Time with Patient: Greater than 30
[2023-02-24] MEDS: METOPROLOL TARTRATE 12.5 MG TAB PO SCH ×3 (02:25→21:28)
[2023-02-24 06:53] LABS: Glucose,Whole Blood 126 mg/dL (70-110)
[2023-02-24] MEDS: INSULIN ASPART (NovoLOG) 100 UNIT/ML VIAL SQ SCH ×4 (06:54→21:24)
[2023-02-24] MEDS: MIDODRINE 5 MG TAB PO SCH ×2 (06:56→17:36)
[2023-02-24] MEDS: metFORMIN 500 MG TAB PO SCH ×2 (06:56→17:37)
[2023-02-24] MEDS: AMPICILLIN-SULBACTAM 3 GM in SODIUM CHLORIDE 0.9% 100 ML IVPB SCH ×4 (06:57→23:08)
[2023-02-24] MEDS: REPAGLINIDE 1 MG TAB PO SCH ×3 (06:57→17:43)
[2023-02-24 07:12] LABS: African American GFR (CKD) >90 (>60 ml/min/1.73 sqM); Anion Gap 8 mmol/L; Blood Urea Nitrogen 10 mg/dL (7-17); Calcium 9.1 mg/dL (8.4-10.2); Carbon Dioxide 39 mmol/L (22-30); Chloride 82 mmol/L (98-107); Glucose 98 mg/dL (74-99); Non-African American GFR(CKD) 85 (>60 ml/min/1.73 sqM); Sodium 129 mmol/L (137-145)
[2023-02-24] MEDS: FLUTICASONE 50MCG/SPRAY NASAL 16GM EA NOSTRIL SCH (08:24)
[2023-02-24] MEDS: HEPARIN SODIUM,PORCINE/PF 5,000 UNIT/0.5 ML SYRINGE SQ SCH ×3 (08:24→23:09)
[2023-02-24] MEDS: FLUCONAZOLE 100 MG TAB PO SCH (08:25)
[2023-02-24] MEDS: LINAGLIPTIN 5 MG TABLET PO SCH (08:25)
[2023-02-24] MEDS: FAMOTIDINE 20 MG TAB PO SCH (08:25)
[2023-02-24] MEDS: ASPIRIN 81 MG PO SCH (08:25)
[2023-02-24] MEDS: MONTELUKAST 10 MG TAB PO SCH (08:26)
[2023-02-24] MEDS: NYSTATIN 100,000 UNIT/GM POWD 15 GM TOPICAL SCH ×2 (08:26→21:29)
[2023-02-24] MEDS: POTASSIUM CHLORIDE ER 20 MEQ TAB.ER PO SCH ×3 (08:26→21:28)
[2023-02-24 11:41] LABS: Glucose,Whole Blood 71 mg/dL (70-110)
--- NOTE | 2023-02-24 11:43 | P.PN ---
Subjective Patient is seen in follow-up for hyponatremia. Received dose of Samsca yesterday. Sodium level 129 today. No vomiting or diarrhea. No chest pain or shortness of breath. Vital signs are stable. General: No acute distress. HEENT: Head exam is unremarkable. LUNGS: No audible rhonchi or wheezes. HEART: Rate and Rhythm are regular. ABDOMEN: Soft, nontender. EXTREMITITES: No edema. Objective - Vital Signs Vital signs: Vital Signs Temp 97.5 F L 02/24/23 02:00 Pulse 89 02/24/23 02:00 Resp 17 02/24/23 02:00 BP 102/67 02/24/23 02:00 Pulse Ox 92 L 02/24/23 02:00 FiO2 Intake & Output 02/23/23 02/24/23 02/24/23 18:59 06:59 18:59 Other: Voiding Method Toilet # Voids 4 4 # Bowel Movements 1 - Labs CBC & Chem 7: 02/22/23 14:51 02/24/23 05:56 Labs: Abnormal Lab Results - Last 24 Hours (Table) 02/23/23 02/24/23 02/24/23 Range/Units 13:59 05:56 06:52 Sodium 120 L 129 L (137-145) mmol/L Chloride 71 L* 82 L (98-107) mmol/L Carbon Dioxide 38 H 39 H (22-30) mmol/L Glucose 129 H (74-99) mg/dL POC Glucose (mg/dL) 126 H (70-110) mg/dL Assessment and Plan Plan: Assessment: 1. Hyponatremia from poor solute intake and use of thiazide diuretic. Additionally medications like Cymbalta can induce SIADH. Urine osmolality 179. Sodium level dropped with IV fluids and is improving with fluid restrictio. Sodium level 129 this morning. TSH and cortisol level normal. Status post 1 dose of Samsca yesterday. 2. Hypokalemia from use of diuretics. Magnesium normal. Replaced. Improved. 3. Diabetes mellitus. 4. History of CHF. Unknown ejection fraction. 5. Groin cellulitis. ID following. On antibiotics. Plan: Maintain fluid restriction. Encourage oral intake, especially protein. Hold off on diuretics. Follow-up PTH related peptide.
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
[2023-02-24 16:33] LABS: Glucose,Whole Blood 116 mg/dL (70-110)
[2023-02-24 20:46] LABS: Glucose,Whole Blood 63 mg/dL (70-110)
[2023-02-24] MEDS ORDERED: LURASIDONE 80 MG TAB PO SCH (21:00)
[2023-02-24] MEDS ORDERED: NYSTAT-TRIAMCIN 100,000-0.1 UNIT/GM-% OINT 30 GM TUBE TOPICAL SCH (21:00)
[2023-02-24 21:08] LABS: Glucose,Whole Blood 71 mg/dL (70-110)
[2023-02-24] MEDS: DULoxetine HCL 60 MG CAPSULE.DR PO SCH (21:28)
[2023-02-24] MEDS: ATORVASTATIN 20 MG TAB PO SCH (21:28)
[2023-02-24] MEDS: NYSTATIN 100,000 UNIT/GM OINT 30 GM TUBE TOPICAL SCH (21:30)
[2023-02-24] MEDS: TRIAMCINOLONE ACET 0.1% OINTMENT 15 GM TUBE TOPICAL SCH (21:30)
[2023-02-24] MEDS: Acetaminophen-Codeine 300-30mg TAB PO PRN (22:24)
--- NOTE | 2023-02-24 23:05 | P.PN ---
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 presenting to the hospital with another episode of cellulitis with increasing pain and discomfort especially to the left groin area On today's evaluation that is 02/24/2023, the patient denies having any fever or any chills, the patient is breathing comfortably no chest pain shortness of breath or cough no abdominal pain mentioned discomfort to the groin area has d ecreased and no diarrhea Objective - Vital Signs Vital signs: Vital Signs Temp 97.5 F L 02/24/23 02:00 Pulse 89 02/24/23 02:00 Resp 17 02/24/23 02:00 BP 102/67 02/24/23 02:00 Pulse Ox 92 L 02/24/23 02:00 FiO2 Intake & Output 02/23/23 02/24/23 02/24/23 18:59 06:59 18:59 Other: Voiding Method Toilet # Voids 4 4 # Bowel Movements 1 - Exam GENERAL DESCRIPTION: Middle-age female lying in bed in no distress RESPIRATORY SYSTEM: Unlabored breathing , decreased breath sounds at bases HEART: S1 S2 regular rate and rhythm , ABDOMEN: Soft , no tenderness, left groin area still have area of erythema and excoriation, exam completed with the help of REGISTERED DENTAL HYGIENIST EXTREMITIES: No edema feet - Labs CBC & Chem 7: 02/22/23 14:51 02/24/23 05:56 Labs: Abnormal Lab Results - Last 24 Hours (Table) 02/23/23 02/23/23 02/23/23 Range/Units 07:36 07:36 13:59 Sodium 120 L 120 L (137-145) mmol/L Potassium 2.9 L (3.5-5.1) mmol/L Chloride 71 L* 71 L* (98-107) mmol/L Carbon Dioxide 38 H 38 H (22-30) mmol/L Glucose 128 H 129 H (74-99) mg/dL POC Glucose (mg/dL) (70-110) mg/dL Hemoglobin A1c 6.6 H (0.0-6.0) % Magnesium 2.5 H (1.6-2.3) mg/dL 04/22/23 04/22/23 Range/Units 05:56 06:52 Sodium 129 L (137-145) mmol/L Potassium (3.5-5.1) mmol/L Chloride 82 L (98-107) mmol/L Carbon Dioxide 39 H (22-30) mmol/L Glucose (74-99) mg/dL POC Glucose (mg/dL) 126 H (70-110) mg/dL Hemoglobin A1c (0.0-6.0) % Magnesium (1.6-2.3) mg/dL Assessment and Plan (1) Cutaneous candidiasis Current Visit: Yes Status: Acute Code(s): B37.2 - CANDIDIASIS OF SKIN AND NAIL SNOMED Code(s): 18076475 (2) Cellulitis of perineum Current Visit: Yes Status: Acute Code(s): L03.315 - CELLULITIS OF PERINEUM SNOMED Code(s): 40339997 Plan: 1patient with extensive cutaneous candidiasis especially involving the left groin area and concern for possible secondary cellulitis likely from gram- positive skin milka underlying gram-negative infection not entirely excluded with diabetes and location of the cellulitis 2-patient to continue with nystatin powder to the groin along with oral Diflucan 3-continue with Unasyn 3 g every 6 hours for secondary cellulitis for another 24 hours and it shows improvement may transition to oral This was a Tele health visit Time with Patient: Less than 30
[2023-02-24 23:08] LABS: Glucose,Whole Blood 98 mg/dL (70-110)
[2023-02-25 02:29] LABS: Glucose,Whole Blood 117 mg/dL (70-110)
[2023-02-25] MEDS: MIDODRINE 5 MG TAB PO SCH (06:36)
[2023-02-25] MEDS: REPAGLINIDE 1 MG TAB PO SCH ×2 (06:36→12:52)
[2023-02-25] MEDS: AMPICILLIN-SULBACTAM 3 GM in SODIUM CHLORIDE 0.9% 100 ML IVPB SCH ×2 (06:36→12:52)
[2023-02-25] MEDS: metFORMIN 500 MG TAB PO SCH (06:36)
[2023-02-25] MEDS: INSULIN ASPART (NovoLOG) 100 UNIT/ML VIAL SQ SCH ×2 (06:39→12:50)
[2023-02-25 06:40] LABS: Glucose,Whole Blood 95 mg/dL (70-110)
[2023-02-25 07:05] LABS: African American GFR (CKD) >90 (>60 ml/min/1.73 sqM); Anion Gap 3 mmol/L; Blood Urea Nitrogen 10 mg/dL (7-17); Calcium 9.1 mg/dL (8.4-10.2); Carbon Dioxide 40 mmol/L (22-30); Chloride 90 mmol/L (98-107); Glucose 97 mg/dL (74-99); Non-African American GFR(CKD) 80 (>60 ml/min/1.73 sqM); Potassium 4.2 mmol/L (3.5-5.1); Sodium 133 mmol/L (137-145)
[2023-02-25 08:09] LABS: Glucose,Whole Blood 133 mg/dL (70-110)
[2023-02-25 08:23] VITALS: BP 106/67; PULSE 85; RESP 18; TEMP 97.6
[2023-02-25] MEDS: NYSTATIN 100,000 UNIT/GM POWD 15 GM TOPICAL SCH (10:09)
--- NOTE | 2023-02-25 10:15 | P.PN ---
Subjective Patient is seen in follow-up for hyponatremia. Received 1 dose of Samsca this admission. Sodium level 133 today. No edema. No vomiting or diarrhea. No chest pain or shortness of breath. Vital signs are stable. General: No acute distress. HEENT: Head exam is unremarkable. LUNGS: No audible rhonchi or wheezes. HEART: Rate and Rhythm are regular. ABDOMEN: Soft, nontender. EXTREMITITES: No edema. Objective - Vital Signs Vital signs: Vital Signs Temp 97.6 F 02/25/23 07:09 Pulse 85 02/25/23 07:09 Resp 18 02/25/23 07:09 BP 106/67 02/25/23 07:09 Pulse Ox 92 L 02/25/23 07:09 FiO2 Intake & Output 02/24/23 02/25/23 02/25/23 18:59 06:59 18:59 Other: # Voids 3 3 # Bowel Movements 1 - Labs CBC & Chem 7: 02/22/23 14:51 02/25/23 06:32 Labs: Abnormal Lab Results - Last 24 Hours (Table) 02/24/23 02/24/23 02/25/23 Range/Units 16:32 20:45 02:27 Sodium (137-145) mmol/L Chloride (98-107) mmol/L Carbon Dioxide (22-30) mmol/L POC Glucose (mg/dL) 116 H 63 L 117 H (70-110) mg/dL 02/25/23 02/25/23 Range/Units 06:32 08:08 Sodium 133 L (137-145) mmol/L Chloride 90 L (98-107) mmol/L Carbon Dioxide 40 H (22-30) mmol/L POC Glucose (mg/dL) 133 H (70-110) mg/dL Assessment and Plan Plan: Assessment: 1. Hyponatremia from poor solute intake and use of thiazide diuretic. Additionally medications like Cymbalta can induce SIADH. Urine osmolality 179. Sodium level dropped with IV fluids and is improving with fluid restriction. Sodium level 133 this morning. TSH and cortisol level normal. Status post 1 dose of Samsca this admission. 2. Hypokalemia from use of diuretics. Magnesium normal. Replaced. Improved. 3. Diabetes mellitus. 4. History of CHF. Unknown ejection fraction. 5. Groin cellulitis. ID following. On antibiotics. Plan: Maintain <50 oz fluid restriction. Encourage oral intake, especially protein. Hold off on diuretics. Follow-up PTH related peptide. I advised patient to monitor her weight closely at home and to resume Lasix 40 mg once daily if notices edema or weight gain of more than 3 pounds in 1 week duration. Avoid thiazide diuretics due to hyponatremia. Hold midodrine for systolic blood pressure greater than 110. Repeat BMP and magnesium level 2-3 days postdischarge. Follow up outpatient in 1 week.
[2023-02-25] MEDS: HEPARIN SODIUM,PORCINE/PF 5,000 UNIT/0.5 ML SYRINGE SQ SCH (10:23)
[2023-02-25] MEDS: FLUCONAZOLE 100 MG TAB PO SCH (10:24)
[2023-02-25] MEDS: MONTELUKAST 10 MG TAB PO SCH (10:24)
[2023-02-25] MEDS: METOPROLOL TARTRATE 12.5 MG TAB PO SCH (10:24)
[2023-02-25] MEDS: FAMOTIDINE 20 MG TAB PO SCH (10:26)
[2023-02-25] MEDS: LINAGLIPTIN 5 MG TABLET PO SCH (10:26)
[2023-02-25] MEDS: DULoxetine HCL 60 MG CAPSULE.DR PO SCH (10:26)
[2023-02-25] MEDS: NYSTATIN 100,000 UNIT/GM OINT 30 GM TUBE TOPICAL SCH (10:27)
[2023-02-25] MEDS: ASPIRIN 81 MG PO SCH (10:27)
[2023-02-25] MEDS: FLUTICASONE 50MCG/SPRAY NASAL 16GM EA NOSTRIL SCH (10:27)
[2023-02-25] MEDS: TRIAMCINOLONE ACET 0.1% OINTMENT 15 GM TUBE TOPICAL SCH (10:27)
[2023-02-25] MEDS: POTASSIUM CHLORIDE ER 20 MEQ TAB.ER PO SCH (10:28)
[2023-02-25] MEDS ORDERED: OLANZapine 5 MG TAB PO SCH (10:30)
[2023-02-25] MEDS ORDERED: NICOTINE 21MG/24HR PATCH TRANSDERM SCH (11:00)
[2023-02-25 11:39] LABS: Glucose,Whole Blood 106 mg/dL (70-110)
--- NOTE | 2023-02-26 22:54 | P.DS ---
Providers Date of admission: 02/22/23 15:58 Attending physician: Zonia Polanco Consults: 02/22/23 16:11 Consult Physician Routine Consulting Provider: Malka Yeboah Consult Reason/Comments: cellulitis Do you want consulting provider notified?: Yes, Notify in am 02/22/23 21:34 Consult Physician Routine Consulting Provider: Mitchell Beverly Consult Reason/Comments: hyponatremia Do you want consulting provider notified?: Yes Primary care physician: Elsa Davidson [facility] Course: Final Diagnosis -Redness in the bilateral inguinal folds: Fungal intertrigo and cellulitis -Hyponatremia secondary to thiazide diuretics and metolazone, holding these medications and patient will be on fluid restriction -Hypokalemia has resolved. -COPD without any acute exacerbation -Hypertension -Peripheral vascular disease -Type 2 diabetes mellitus controlled hemoglobin A1C 6.6 -Generalized deconditioning physical therapy and occupational therapy evaluation -Anxiety/Depression, patient follows with psychiatrist and is maintained on olanzapine -History of asthma with no acute exacerbation -History of coronary artery disease -History of vasculitis Full Code Discharge Disposition Hospital Course 57-year-old female is admitted for bilateral groin cellulitis which is basically fungal intertrigo, patient was taking oral cephalexin at home as well as antifungal powder without much improvement. There is also significant excoriation in the panus and inguinal folds. Patient follows with Dr. Yeboah with infectious disease who was consulted patient received Rocephin and the metronidazole. Patient doesn't have any fever chills doesn't have leukocytosis. Patient is also found to have severe hyponatremia on admission at 121 which then dropped to 117. Chloride was also low at 69 and potassium at 2.6. patient is on hydrochlorothiazide as well as metolazone. Patient is not hypervolemic and unsure whether that is a history of heart failure. Patient is also on multiple psych medications including olanzapine which is known to cause hyponatremia. Nephrology is following the patient for the low sodium. Patient's TSH and cortisol levels within normal limits. Samsca x 1 given which had improved Sodium improved to 129. Noted that sodium level worsened with IV fluids. Patient was started on fluid restriction and sodium had improved to 133. Metolazone has been discontinued on discharge. Clinically patient improved with IV unasyn and recommending for course of oral augmentin on discharge in addition to the oral diflucan. Patient to also continue with nystatin powder as well as the nystatin/triamcinolone cream which to be used in the groin excoriation and also use the inner dry antimicrobial sheets in the abdominal folds. Patient to repeat labs in 2 to 3 days. 02/25/2023 Patient is evaluated today up in the chair. No acute events overnight. No shortness of breath, no chest pain. Reports that the groin cellulitis and fungal infection feels better which the redness has decreased. Patient has been cleared by Dr Yeboah for discharge. Nephrology has also cleared patient for discharge. Lungs are clear S1 S2 auscultated and abdomen is soft and nontender. Patient is alert x3 and focal neurological exam is negative. Sodium is 133. Potassium is 4.2 and chloride is 90. Please see medication reconciliation for a list of current medication. Thank you for allowing us to participate in the care of this patient. The impression and plan of care has been dictated by Alysha Engel, Nurse Practitioner as directed. Dr. Brandi MD I have performed a history and physical examination and medical decision making of this patient, discussed the same with the dictator, and agree with the dictators assessment and plan as written, documented as a scribe. Based on total visit time, I have performed more than 50% of this visit. Patient Condition at Discharge: Stable Plan - Discharge Summary Discharge Rx Participant: No New Discharge Prescriptions: New Metoprolol Tartrate [Lopressor] 12.5 mg PO BID tab Famotidine [Pepcid] 20 mg PO DAILY #30 tab Amoxic-Pot Clav 875-125Mg [Augmentin 875-125] 1 tab PO Q12HR 10 Days #20 tab Fluconazole [Diflucan] 200 mg PO DAILY #10 tab Triamcinolone 0.1% Ointment [Kenalog 0.1% Ointment] 1 applic TOPICAL BID each Nystatin 100,000 Unit/gm Oint [Mycostatin Oint] 1 applic TOPICAL BID each Continue Albuterol Nebulized [Ventolin Nebulized] 2.5 mg INHALATION RT-QID PRN PRN Reason: Shortness Of Breath DULoxetine HCL [Cymbalta] 60 mg PO BID Oxybutynin Xl [Ditropan XL] 5 mg PO DAILY metFORMIN HCL [Glucophage] 500 mg PO BID Saxagliptin HCl [Onglyza] 5 mg PO DAILY Lurasidone [Latuda] 80 mg PO HS OLANZapine [ZyPREXA] 5 mg PO BID Fluticasone Nasal [place] [Flonase Nasal [place]] 2 spray EA NOSTRIL DAILY Budesonide/Formoterol Fumarate [Symbicort 80-4.5 Mcg Inhaler] 2 puff INHALATION RT-BID PRN PRN Reason: Shortness Of Breath Midodrine [ProAmatine] 2.5 mg PO BID #0 Repaglinide [Prandin] 1 mg PO TID Aspirin EC [Ecotrin Low Dose] 81 mg PO DAILY Dicyclomine [Bentyl] 10 mg PO TID PRN PRN Reason: Gi Upset Rosuvastatin [Crestor] 10 mg PO HS Nitroglycerin Sl Tabs [Nitrostat] 0.4 mg SUBLINGUAL Q5M PRN PRN Reason: Chest Pain Montelukast [Singulair] 10 mg PO DAILY Acetaminophen-Codeine 300-30mg [Tylenol w/codeine #3] 1 tab PO Q6H PRN PRN Reason: Pain Acetaminophen Tab [Tylenol] 1,000 mg PO Q6HR PRN PRN Reason: Fever And/ Or Pain Nystatin [Nystop] 1 applic TOPICAL BID 10 Days #1 each Changed Potassium Chloride ER [K-Dur 20] 20 meq PO DAILY #0 Discontinued Furosemide [Lasix] 80 mg PO DAILY metOLazone [Zaroxolyn] 2.5 mg PO DAILY Metoprolol Tartrate [Lopressor] 12.5 mg PO BID Cephalexin [Keflex] 500 mg PO QID Discharge Medication List Albuterol Nebulized [Ventolin Nebulized] 2.5 mg INHALATION RT-QID PRN 05/11/14 [History] DULoxetine HCL [Cymbalta] 60 mg PO BID 08/02/16 [History] Oxybutynin Xl [Ditropan XL] 5 mg PO DAILY 08/02/16 [History] Saxagliptin HCl [Onglyza] 5 mg PO DAILY 09/11/19 [History] metFORMIN HCL [Glucophage] 500 mg PO BID 09/11/19 [History] Acetaminophen Tab [Tylenol] 1,000 mg PO Q6HR PRN 02/22/23 [History] Acetaminophen-Codeine 300-30mg [Tylenol w/codeine #3] 1 tab PO Q6H PRN 02/22/23 [History] Aspirin EC [Ecotrin Low Dose] 81 mg PO DAILY 02/22/23 [History] Budesonide/Formoterol Fumarate [Symbicort 80-4.5 Mcg Inhaler] 2 puff INHALATION RT-BID PRN 02/22/23 [History] Dicyclomine [Bentyl] 10 mg PO TID PRN 02/22/23 [History] Fluticasone Nasal [place] [Flonase Nasal [place]] 2 spray EA NOSTRIL DAILY 02/22/23 [History] Lurasidone [Latuda] 80 mg PO HS 02/22/23 [History] Montelukast [Singulair] 10 mg PO DAILY 02/22/23 [History] Nitroglycerin Sl Tabs [Nitrostat] 0.4 mg SUBLINGUAL Q5M PRN 02/22/23 [History] OLANZapine [ZyPREXA] 5 mg PO BID 02/22/23 [History] Repaglinide [Prandin] 1 mg PO TID 02/22/23 [History] Rosuvastatin [Crestor] 10 mg PO HS 02/22/23 [History] Amoxic-Pot Clav 875-125Mg [Augmentin 875-125] 1 tab PO Q12HR 10 Days #20 tab 02/25/23 [Rx] Famotidine [Pepcid] 20 mg PO DAILY #30 tab 02/25/23 [Rx] Fluconazole [Diflucan] 200 mg PO DAILY #10 tab 02/25/23 [Rx] Metoprolol Tartrate [Lopressor] 12.5 mg PO BID tab 02/25/23 [Rx] Midodrine [ProAmatine] 2.5 mg PO BID #0 02/25/23 [Rx] Nystatin 100,000 Unit/gm Oint [Mycostatin Oint] 1 applic TOPICAL BID each 02/25/23 [Rx] Nystatin [Nystop] 1 applic TOPICAL BID 10 Days #1 each 02/25/23 [Rx] Potassium Chloride ER [K-Dur 20] 20 meq PO DAILY #0 02/25/23 [Rx] Triamcinolone 0.1% Ointment [Kenalog 0.1% Ointment] 1 applic TOPICAL BID each 02/25/23 [Rx] Follow up Appointment(s)/Referral(s): Elsa Cedeño MD [Primary Care Provider] - 1-2 days [facility], [NON-STAFF] - Mitchell Beverly DO [STAFF PHYSICIAN] - 1 Week Malka Yeboah MD [STAFF PHYSICIAN] - 2 Weeks Ambulatory/Diagnostic Orders: Basic Metabolic Panel [LAB.AMB] Time Frame: 3 Days, Location: None Selected Magnesium [LAB.AMB] Time Frame: 3 Days, Location: None Selected Activity/Diet/Wound Care/Special Instructions: Maintain less than 50 oz of fluid per day. Increase dietary protein intake Hold off on diuretics (Lasix and Metolazone) for now, monitor weight closely at home weigh yourself at the same time everyday and keep a log. If you have gained more than 3 pounds in 1 week or notice edema resume lasix at 40 mg by mouth daily Avoid thiazide diuretics secondary to low sodium Hold midodrine for systolic blood pressure greater than 110 Repeat labs in 2 to 3 days Continue oral antibiotics and oral diflucan for 10 days Continue with nystatin powder for 10 days Follow up with Dr Yeboah Discharge Disposition: HOME SELF-CARE
== END 2023-02-25 15:07 | disposition home or self-care (01) | DRG 603 ==
LOC: EC 13:36 → 4SSUR 15:58
PROVIDERS: ADMIT Hospitalist; ATTEND Hospitalist
DX: L03.314 Cellulitis of groin (principal); E87.1 Hypo-osmolality and hyponatremia; E11.52 Type 2 diabetes mellitus with diabetic peripheral angiopathy with gangrene; L03.315 Cellulitis of perineum; B37.2 Candidiasis of skin and nail; B96.89 Other specified bacterial agents as the cause of diseases classified elsewhere; L30.4 Erythema intertrigo; I11.0 Hypertensive heart disease with heart failure; J44.9 Chronic obstructive pulmonary disease, unspecified; M19.90 Unspecified osteoarthritis, unspecified site; E11.42 Type 2 diabetes mellitus with diabetic polyneuropathy; E87.6 Hypokalemia; E87.8 Other disorders of electrolyte and fluid balance, not elsewhere classified; F32.A Depression, unspecified; F41.9 Anxiety disorder, unspecified; I50.9 Heart failure, unspecified; I77.6 Arteritis, unspecified; T50.2X5A Adverse effect of carbonic-anhydrase inhibitors, benzothiadiazides and other diuretics, initial encounter; X58.XXXA Exposure to other specified factors, initial encounter; Z79.4 Long term (current) use of insulin; Z79.899 Other long term (current) drug therapy; Z79.51 Long term (current) use of inhaled steroids; Z79.84 Long term (current) use of oral hypoglycemic drugs; Z79.82 Long term (current) use of aspirin; Z88.2 Allergy status to sulfonamides; Z88.1 Allergy status to other antibiotic agents; Z98.42 Cataract extraction status, left eye; Z98.41 Cataract extraction status, right eye
CPT/HCPCS: 36415; 71045; 80048; 80053; 82533; 83036; 83605; 83735; 83930; 83935; 84443; 85025; 94640; 96361; 96365; 96375; 99285

== ENCOUNTER 2023-04-18 20:29 | Emergency (ER) | payer MEDICARE, OTHER ==
[2023-04-18 21:35] VITALS: RESP 16
--- NOTE | 2023-04-18 22:23 | ED ---
General Adult HPI - General Chief complaint: Wound/Laceration Stated complaint: wounds on body Time Seen by Provider: 04/18/23 21:58 Source: patient Mode of arrival: ambulatory Limitations: no limitations - History of Present Illness Initial comments: 57-year-old woman in the past medical history significant for diabetes presents to the ED with a chief complaint of cellulitis. Patient states that she has chronic "wounds" the areas underneath her breasts and to her groin. Patient states that she was previously prescribed Keflex and was previously using antifungal cream but was recently changed to antifungal powder for these areas. Despite this she reports no improvement. Denies fever. No other complaints. - Related Data Home Medications Medication Instructions Recorded Confirmed Albuterol Nebulized [Ventolin 2.5 mg INHALATION RT-QID PRN 05/11/14 03/29/23 Nebulized] DULoxetine HCL [Cymbalta] 60 mg PO BID 08/02/16 03/29/23 Oxybutynin Xl [Ditropan XL] 5 mg PO DAILY 08/02/16 03/29/23 Saxagliptin HCl [Onglyza] 5 mg PO DAILY 09/11/19 03/29/23 metFORMIN HCL [Glucophage] 500 mg PO BID 09/11/19 03/29/23 Acetaminophen Tab [Tylenol] 1,000 mg PO Q6HR PRN 02/22/23 03/29/23 Acetaminophen-Codeine 300-30mg 1 tab PO Q6H PRN 02/22/23 03/29/23 [Tylenol w/codeine #3] Aspirin EC [Ecotrin Low Dose] 81 mg PO DAILY 02/22/23 03/29/23 Budesonide/Formoterol Fumarate 2 puff INHALATION RT-BID PRN 02/22/23 03/29/23 [Symbicort 80-4.5 Mcg Inhaler] Dicyclomine [Bentyl] 10 mg PO TID PRN 02/22/23 03/29/23 Fluticasone Nasal [place] [Flonase 2 spray EA NOSTRIL DAILY PRN 02/22/23 03/29/23 Nasal [place]] Lurasidone [Latuda] 80 mg PO W/SUPPER 02/22/23 03/29/23 Montelukast [Singulair] 10 mg PO DAILY 02/22/23 03/29/23 Nitroglycerin Sl Tabs [Nitrostat] 0.4 mg SUBLINGUAL Q5M PRN 02/22/23 03/29/23 OLANZapine [ZyPREXA] 5 mg PO BID 02/22/23 03/29/23 Repaglinide [Prandin] 1 mg PO TID 02/22/23 03/29/23 Rosuvastatin [Crestor] 10 mg PO HS 02/22/23 03/29/23 Potassium Chloride ER [K-Dur 20] 20 meq PO QAM 03/08/23 03/29/23 Previous Rx's Medication Instructions Recorded Famotidine [Pepcid] 20 mg PO DAILY #30 tab 02/25/23 Fluconazole [Diflucan] 200 mg PO DAILY #10 tab 02/25/23 Metoprolol Tartrate [Lopressor] 12.5 mg PO BID tab 02/25/23 Midodrine [ProAmatine] 2.5 mg PO BID #0 02/25/23 Nystatin 100,000 Unit/gm Oint 1 applic TOPICAL BID each 02/25/23 [Mycostatin Oint] Cephalexin [Keflex] 500 mg PO Q6HR 5 Days #20 cap 04/18/23 Allergies Allergy/AdvReac Type Severity Reaction Status Date / Time acetaminophen [From Lortab] Allergy Unknown Rash/Hives Verified 04/18/23 21:35 hydrocodone [From Lortab] Allergy Unknown Rash/Hives Verified 04/18/23 21:35 sulfamethoxazole Allergy Rash/Hives Verified 04/18/23 21:35 [From Bactrim] trimethoprim [From Bactrim] Allergy Rash/Hives Verified 04/18/23 21:35 Review of Systems ROS Statement: Those systems with pertinent positive or pertinent negative responses have been documented in the HPI. ROS Other: All systems not noted in ROS Statement are negative. Past Medical History Past Medical History: Asthma, Chest Pain / Angina, Heart Failure, COPD, Diabetes Mellitus, Eye Disorder, Hypertension, Osteoarthritis (OA), Vascular Disorder Additional Past Medical History / Comment(s): VASCULITIS STATES IN REMISSION, NEUROPATHY TIESHA LEGS, LIMITED VISION TIESHA EYES, EDEMA TIESHA LEGS, SOB WITH ACTIVITY, HX OF ACUTE RENAL FAILURE, HAS RECENTLY BEEN PUT ON FLUID RESTRICTIONS History of Any Multi-Drug Resistant Organisms: None Reported Past Surgical History: Cholecystectomy, Heart Catheterization, Orthopedic Surgery Additional Past Surgical History / Comment(s): ARTHOSCOPY TIESHA KNEES, WRIST SX, CATARACT SX TIESHA, SKIN BX Past Anesthesia/Blood Transfusion Reactions: No Reported Reaction Additional Past Anesthesia/Blood Transfusion Reaction / Comment(s): STATES "HARD TIME WAKING UP" Date of Last Stent Placement:: 2013 Past Psychological History: Anxiety, Depression Smoking Status: Never smoker Past Alcohol Use History: None Reported Past Drug Use History: None Reported - Past Family History Mother Family Medical History: No Reported History General Exam Limitations: no limitations Head exam: Present: atraumatic Eye exam: Present: normal appearance Respiratory exam: Present: normal lung sounds bilaterally Cardiovascular Exam: Present: regular rate Neurological exam: Present: oriented X3 Skin exam: Present: rash (In the groin there is a rash consistent with fungal intertrigo. There is minimal warmth erythema and tenderness to palpation however no crepitus.), other (Rash in this areas underneath bilateral breasts appear consistent with intertrigo. No warmth redness or erythema concerning for overlying bacterial infection.) Course Vital Signs 04/18/23 04/18/23 21:29 22:20 Temperature 97.5 F L Pulse Rate 91 86 Respiratory 16 16 Rate Blood Pressure 162/94 170/82 O2 Sat by Pulse 97 94 L Oximetry Medical Decision Making - Medical Decision Making Was pt. sent in by a medical professional or institution (, PA, UTILITY SYSTEM REPAIRER, urgent care, hospital, or senior care...) When possible be specific @ -No Did you speak to anyone other than the patient for history (EMS, parent, family, police, friend...)? What history was obtained from this source @ -No Did you review nursing and triage notes (agree or disagree)? Why? @ -I reviewed and agree with nursing and triage notes Were old charts reviewed (outside hosp., previous admission, EMS record, old EKG, old radiological studies, urgent care reports/EKG's, senior care records)? Report findings @ -Old charts reviewed showing a history of CHF and cutaneous candidiasis Differential Diagnosis (chest pain, altered mental status, abdominal pain women, abdominal pain men, vaginal bleeding, weakness, fever, dyspnea, syncope, headache, dizziness, GI bleed, back pain, seizure, CVA, palpatations, mental health, musculoskeletal)? @ -Cellulitis, MRSA, Berenice gangrene. This Is not meant to be an all- inclusive list EKG interpreted by me (3pts min.). @ -None X-rays interpreted by me (1pt min.). @ -None done CT interpreted by me (1pt min.). @ -None done U/S interpreted by me (1pt. min.). @ -None done What testing was considered but not performed or refused? (CT, X-rays, U/S, labs)? Why? @ -Considered basic labs however upon exam findings consistent with i ntertrigo/cutaneous candidiasis. What meds were considered but not given or refused? Why? @ -None Did you discuss the management of the patient with other professionals (professionals i.e. Dr., PA, UTILITY SYSTEM REPAIRER, lab, RT, psych nurse, protective services social worker, hydraulic assembler, teacher, quality officer, casework supervisor)? Give summary @ -No Was smoking cessation discussed for >3mins.? @ -No Was critical care preformed (if so, how long)? @ -No Were there social determinants of health that impacted care today? How? (Homelessness, low income, unemployed, alcoholism, drug addiction, transportation, low edu. Level, literacy, decrease access to med. care, prison, rehab)? @ -No Was there de-escalation of care discussed even if they declined (Discuss DNR or withdrawal of care, Hospice)? DNR status @ -No What co-morbidities impacted this encounter? (DM, HTN, Smoking, COPD, CAD, Cancer, CVA, ARF, Chemo, Hep., AIDS, mental health diagnosis, sleep apnea, morbid obesity)? @ -None Was patient admitted / discharged? Hospital course, mention meds given and route, prescriptions, significant lab abnormalities, going to OR and other pertinent info. @ -Discharged. Exam findings as above. Advised to dry areas properly and applied antifungal powder. Provided prescription for Keflex. Patient has follow up with PCP tomorrow. Discharged in stable condition. Undiagnosed new problem with uncertain prognosis? @ -No Drug Therapy requiring intensive monitoring for toxicity (Heparin, Nitro, Insulin, Cardizem)? @ -No Were any procedures done? @ -No Diagnosis/symptom? @ -Intertrigo, cutaneous candidiasis Acute, or Chronic, or Acute on Chronic? @ -Chronic Uncomplicated (without systemic symptoms) or Complicated (systemic symptoms)? @ -Uncomplicated Side effects of treatment? @ -No Exacerbation, Progression, or Severe Exacerbation? @ -No Poses a threat to life or bodily function? How? (Chest pain, [place], [place], pneumonia, PE, COPD, DKA, ARF, appy, cholecystitis, CVA, Diverticulitis, Homicidal, Suicidal, threat to staff... and all critical care pts) @ -No Disposition Clinical Impression: Intertrigo Disposition: HOME SELF-CARE Instructions (If sedation given, give patient instructions): Skin Yeast Infection (ED) Additional Instructions: Please return to the Emergency Department if symptoms worsen or any other concerns. Prescriptions: Cephalexin [Keflex] 500 mg PO Q6HR 5 Days #20 cap Is patient prescribed a controlled substance at d/c from ED?: No Referrals: Elsa Cedeño MD [Primary Care Provider] - 1-2 days Decision Time: 22:35
[2023-04-18 22:36] LABS: Basophils % (A) 0 %; Eosinophils # (A) 0.3 k/uL (0-0.7); Eosinophils % (A) 3 %; HCT 37.3 % (34.0-46.0); HGB 12.4 gm/dL (11.4-16.0); Lymphocytes % (A) 25 %; MCH 28.2 pg (25.0-35.0); MCHC 33.2 g/dL (31.0-37.0); Mean Platelet Volume 6.6; Monocytes # (A) 0.4 k/uL (0-1.0); Monocytes % (A) 5 %; Neutrophils # (A) 5.2 k/uL (1.3-7.7); Neutrophils % (A) 65 %; Platelet Count 454 k/uL (150-450); RBC 4.39 m/uL (3.80-5.40); RDW 13.4 % (11.5-15.5); WBC 7.9 k/uL (3.8-10.6)
[2023-04-18 22:58] VITALS: BP 172/89; PULSE 87; TEMP 97.7
== END 2023-04-18 23:17 | disposition home or self-care (01) ==
LOC: EC 20:29
DX: L30.4 Erythema intertrigo (principal); J45.909 Unspecified asthma, uncomplicated; E11.9 Type 2 diabetes mellitus without complications; I11.0 Hypertensive heart disease with heart failure; I50.9 Heart failure, unspecified; M19.90 Unspecified osteoarthritis, unspecified site; F41.9 Anxiety disorder, unspecified; F32.A Depression, unspecified; Z79.82 Long term (current) use of aspirin; Z79.899 Other long term (current) drug therapy; Z88.2 Allergy status to sulfonamides; Z88.8 Allergy status to other drugs, medicaments and biological substances
CPT/HCPCS: 36415; 85025; 99283

== ENCOUNTER 2023-05-21 09:34 | Day surgery (SDC) | payer MEDICARE, OTHER ==
[2023-05-17 11:41] VITALS: BMI 40.2
[~2023-05-21 09:34] MED LIST changes: -ALPRAZolam 0.25 MG TAB PO PRN; -ALPRAZolam 0.5 MG TAB PO PRN; -ASPIRIN 325 MG TAB PO STA; -ATORVASTATIN 80 MG TAB PO STA; -HEPARIN SODIUM 1,000 UN/ML (10ML VL) ONE; -IOPAMIDOL-370 125ML BTL INJ ONE; -IV FLUID CONTINUATION 950 ML IV ONE; -LIDOCAINE 1% INJ 10MG/ML (20 ML MDV) ONE; -LIDOCAINE 1% INJ 10MG/ML (20 ML MDV) SQ ONE; -MIDAZOLAM 2 MG/2 ML VIAL IV ONE; -MIDAZOLAM 2 MG/2 ML VIAL ONE; -NITROGLYCERIN SL TABS 0.4 MG TAB SUBLINGUAL PRN; -RX INFO: IV CONTRAST WAS GIVEN 1 EACH MISC MISCELLANE PRN; -SODIUM CHLORIDE 0.9% 1,000 ML IV SCH; -VERAPAMIL 2.5 MG/ML 2 ML AMP ONE; -VERAPAMIL SYRINGE (5 MG/10 ML) INTRAARTER ONE
[2023-05-21 10:01] VITALS: RESP 18; TEMP 97.6
[2023-05-21 10:04] LABS: Glucose,Whole Blood 151 mg/dL (70-110)
[2023-05-21 10:19] LABS: Basophils # (A) 0.1 k/uL (0-0.2); Basophils % (A) 1 %; Eosinophils # (A) 0.2 k/uL (0-0.7); Eosinophils % (A) 2 %; HCT 39.8 % (34.0-46.0); HGB 13.2 gm/dL (11.4-16.0); Lymphocytes % (A) 11 %; MCH 28.3 pg (25.0-35.0); MCHC 33.2 g/dL (31.0-37.0); MCV 85.2 fL (80.0-100.0); Mean Platelet Volume 6.7; Monocytes # (A) 0.4 k/uL (0-1.0); Monocytes % (A) 4 %; Neutrophils # (A) 7.4 k/uL (1.3-7.7); Neutrophils % (A) 81 %; Platelet Count 475 k/uL (150-450); RBC 4.67 m/uL (3.80-5.40); RDW 13.6 % (11.5-15.5); WBC 9.2 k/uL (3.8-10.6)
[2023-05-21 10:46] LABS: African American GFR (CKD) >90 (>60 ml/min/1.73 sqM); Anion Gap 11 mmol/L; Blood Urea Nitrogen 8 mg/dL (7-17); Calcium 9.4 mg/dL (8.4-10.2); Carbon Dioxide 29 mmol/L (22-30); Chloride 96 mmol/L (98-107); Glucose 155 mg/dL (74-99); Non-African American GFR(CKD) >90 (>60 ml/min/1.73 sqM); Potassium 4.7 mmol/L (3.5-5.1); Sodium 136 mmol/L (137-145)
[2023-05-21] MEDS ORDERED: HEPARIN SODIUM 1,000 UN/ML (10ML VL) ONE (11:01)
[2023-05-21] MEDS ORDERED: LIDOCAINE 1% INJ 10MG/ML (20 ML MDV) ONE ×2 (11:01→11:23)
[2023-05-21] MEDS ORDERED: MIDAZOLAM 2 MG/2 ML VIAL IVP ONE (11:20)
[2023-05-21] MEDS ORDERED: LIDOCAINE 1% INJ 10MG/ML (20 ML MDV) SQ ONE (11:22)
[2023-05-21] MEDS ORDERED: IOPAMIDOL-370 100ML BTL INJ ONE (11:44)
[2023-05-21] MEDS ORDERED: NALOXONE 0.4 MG/ML 1 ML VIAL IVP PRN (11:48)
[2023-05-21] MEDS ORDERED: SODIUM CHLORIDE 0.9% 1,000 ML in EMPTY BAG 1 BAG IV SCH (12:00)
--- NOTE | 2023-05-21 12:05 | IR ---
EXAMINATION TYPE: IR venogram lower ext BILAT DATE OF EXAM: 05/21/2023 COMPARISON: NONE HISTORY: Fluoroscopy time. Fluoroscopy was provided to the referring clinician. DAP 0.212
[2023-05-21 16:26] VITALS: BP 138/72; PULSE 94
--- NOTE | 2023-05-22 09:13 | P.PCN ---
Date of Procedure: 05/22/23 Operative Findings: Venous imaging and venous angiogram report Performing physician Silvestre Martin M.D. Procedure performed 1. An angiogram of bilateral common femoral veins and external iliac veins and common iliac veins and inferior vena cava 2. Intravascular ultrasound of bilateral common femoral veins and external iliac veins and common iliac veins and inferior vena cava 3. Ultrasound-guided access of bilateral common femoral veins Indication This is a 57-year-old female patient who continues to struggle was bilateral lower extremity is edema. She was placed on diuretics but she developed renal failure. She did not response to diuretics. Deep venous thrombosis was ruled out as well. In the light of that I was concerned about stenosis of bilateral iliac veins or common femoral veins. She was brought today to undergo an angiogram and intravascular imaging Approach Right and left common femoral veins Complication None Level of sedation Moderate with a sedation length of 42 minutes Procedure description After obtaining an informed consent the patient was brought to the cardiac cathode ray tube assembler. The right and left common femoral veins were cannulated using micropuncture technique under ultrasound guidance, the micropuncture wire passed easily then I placed 11 cm is 8-Setswana sheath at the right and left common iliac veins. Subsequently an 035 wire was advanced to the inferior vena cava. Subsequently an angiogram was performed using DSA and then intravascular ultrasound was performed on both sides with manual pullback. The procedure was completed there was no complication. Intravascular ultrasound finding The IVC reference area was 191.4 mm The right common iliac vein The reference area was 1 48 mm and decompressed area was 10 4 mm with an area stenosis of 29% The left common iliac vein The reference area was 1 62 mm was a compressed area of 75 mm and area stenosis of 53% The right external iliac vein reference area was 1 51 mm and compressed area was 97 mm with an area stenosis of 35% The left external iliac vein reference area was 1 51 mm with a compressed area of 82 mm and area stenosis of 45% The right common femoral vein reference area was 100 mm The left common femoral vein reference area was 102 mm. 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
== END 2023-05-21 17:26 | disposition home or self-care (01) ==
LOC: CATHCVL 09:34 → 6NMEDSUR 11:45 → CATHCVL 17:26
PROVIDERS: ATTEND Internal Medicine Interventional Cardiology
DX: R60.0 Localized edema (principal); I10 Essential (primary) hypertension; E78.5 Hyperlipidemia, unspecified; E11.9 Type 2 diabetes mellitus without complications; G47.33 Obstructive sleep apnea (adult) (pediatric); Z82.49 Family history of ischemic heart disease and other diseases of the circulatory system; Z79.84 Long term (current) use of oral hypoglycemic drugs; Z79.899 Other long term (current) drug therapy
CPT/HCPCS: 75822; 76937; 37252; 37253; 80048; 85025; C1769 ×2; C1894 ×2; C1753; J2250; J2001; Q9967

== ENCOUNTER 2023-07-15 22:15 | Observation (INO) | payer MEDICARE, OTHER ==
[2023-07-16 01:52] LABS: ALT 17 U/L (4-34); AST 26 U/L (14-36); African American GFR (CKD) >90 (>60 ml/min/1.73 sqM); Alkaline Phosphatase 108 U/L (38-126); Anion Gap 9 mmol/L; Blood Urea Nitrogen 9 mg/dL (7-17); Calcium 9.5 mg/dL (8.4-10.2); Carbon Dioxide 30 mmol/L (22-30); Chloride 95 mmol/L (98-107); Glucose 83 mg/dL (74-99); Non-African American GFR(CKD) 80 (>60 ml/min/1.73 sqM); Potassium 4.4 mmol/L (3.5-5.1); Sodium 134 mmol/L (137-145); Total Bilirubin 0.4 mg/dL (0.2-1.3); Total Protein 7.4 g/dL (6.3-8.2)
[2023-07-16 02:05] LABS: Basophils % (A) 0 %; Eosinophils # (A) 0.4 k/uL (0-0.7); Eosinophils % (A) 4 %; HCT 37.5 % (34.0-46.0); HGB 12.5 gm/dL (11.4-16.0); Lymphocytes # (A) 1.8 k/uL (1.0-4.8); Lymphocytes % (A) 20 %; MCH 28.1 pg (25.0-35.0); MCHC 33.4 g/dL (31.0-37.0); MCV 84.2 fL (80.0-100.0); Mean Platelet Volume 7.5; Monocytes # (A) 0.5 k/uL (0-1.0); Monocytes % (A) 6 %; Neutrophils # (A) 5.8 k/uL (1.3-7.7); Neutrophils % (A) 67 %; Platelet Count 414 k/uL (150-450); RBC 4.46 m/uL (3.80-5.40); RDW 13.6 % (11.5-15.5); WBC 8.7 k/uL (3.8-10.6)
[2023-07-16] MEDS ORDERED: AMPICILLIN-SULBACTAM 3 GM in SODIUM CHLORIDE 0.9% 100 ML IVPB STA (02:23)
[2023-07-16] MEDS ORDERED: MENTHOL-ZINC OXIDE OINT 113 GM TUBE TOPICAL PRN (02:27)
--- NOTE | 2023-07-16 02:28 | ED ---
General Adult HPI - General Chief complaint: Skin/Abscess/Foreign Body Stated complaint: Bacterial cellulitis Time Seen by Provider: 07/16/23 00:27 Source: patient Mode of arrival: wheelchair Limitations: no limitations - History of Present Illness Initial comments: 57-year-old female past medical history of obesity, diabetes who presents the emergency department stating that she is failing outpatient treatment. States that she has been hospitalized several times over the past year for cellulitis of her groin region. States her last hospitalization was last week and at [facility]. She is under the care of Dr. Bertram bundy. States that she suffers from a fungal infection as well as cellulitis. She is currently on antibiotics and diflucan which she states are not working because she is having more odor and purulent drainage from the site. She denies using any creams that she states that they just make it worse. She denies any fevers. No deep abdominal pain. No other alleviating, precipitating or modifying factors - Related Data Home Medications Medication Instructions Recorded Confirmed DULoxetine HCL [Cymbalta] 60 mg PO BID 08/02/16 07/16/23 Oxybutynin Xl [Ditropan XL] 5 mg PO DAILY 08/02/16 07/16/23 metFORMIN HCL [Glucophage] 500 mg PO BID 09/11/19 07/16/23 Dicyclomine [Bentyl] 10 mg PO TID PRN 02/22/23 07/16/23 Lurasidone [Latuda] 80 mg PO W/SUPPER 02/22/23 07/16/23 Montelukast [Singulair] 10 mg PO HS 02/22/23 07/16/23 Nitroglycerin Sl Tabs [Nitrostat] 0.4 mg SUBLINGUAL Q5M PRN 02/22/23 07/16/23 OLANZapine [ZyPREXA] 10 mg PO HS 02/22/23 07/16/23 Repaglinide [Prandin] 1 mg PO TID-W/MEALS 02/22/23 07/16/23 Rosuvastatin [Crestor] 10 mg PO HS 02/22/23 07/16/23 Potassium Chloride ER [K-Dur 20] 20 meq PO QAM 03/08/23 07/16/23 Cephalexin [Keflex] 500 mg PO Q8HR 07/16/23 07/16/23 Dulaglutide [Trulicity] 0.75 mg SQ WE 07/16/23 07/16/23 Fluconazole 200 mg PO TU 07/16/23 07/16/23 Furosemide [Lasix] 40 mg PO DAILY 07/16/23 07/16/23 Metoprolol Tartrate [Lopressor] 25 mg PO BID 07/16/23 07/16/23 Nystatin 100,000 Unit/gm Powd 1 applic TOPICAL BID 07/16/23 07/16/23 [Mycostatin Powder] Nystatin 100,000Unit/gm Cream 1 applic TOPICAL BID 07/16/23 07/16/23 [Mycostatin Cream] hydrOXYzine pamoate [Vistaril] 25 mg PO BID PRN 07/16/23 07/16/23 Allergies Allergy/AdvReac Type Severity Reaction Status Date / Time hydrocodone [From Lortab] Allergy Unknown Rash/Hives Verified 07/16/23 08:12 sulfamethoxazole Allergy Rash/Hives Verified 07/16/23 08:12 [From Bactrim] trimethoprim [From Bactrim] Allergy Rash/Hives Verified 07/16/23 08:12 Review of Systems ROS Statement: Those systems with pertinent positive or pertinent negative responses have been documented in the HPI. ROS Other: All systems not noted in ROS Statement are negative. Past Medical History Past Medical History: Asthma, Chest Pain / Angina, Heart Failure, COPD, Diabetes Mellitus, Eye Disorder, Hypertension, Osteoarthritis (OA), Vascular Disorder Additional Past Medical History / Comment(s): VASCULITIS STATES IN REMISSION, NEUROPATHY TIESHA LEGS, LIMITED VISION TIESHA EYES, EDEMA TIESHA LEGS, SOB WITH ACTIVITY, HX OF ACUTE RENAL FAILURE, HAS RECENTLY BEEN PUT ON FLUID RESTRICTIONS History of Any Multi-Drug Resistant Organisms: None Reported Past Surgical History: Cholecystectomy, Heart Catheterization, Orthopedic Surgery Additional Past Surgical History / Comment(s): ARTHOSCOPY TIESHA KNEES, WRIST SX, CATARACT SX TIESHA, SKIN BX Past Anesthesia/Blood Transfusion Reactions: No Reported Reaction Additional Past Anesthesia/Blood Transfusion Reaction / Comment(s): STATES "HARD TIME WAKING UP" Date of Last Stent Placement:: 2013 Past Psychological History: Anxiety, Depression Smoking Status: Never smoker Past Alcohol Use History: None Reported Past Drug Use History: None Reported - Past Family History Mother Family Medical History: No Reported History General Exam Limitations: no limitations General appearance: alert, in no apparent distress Head exam: Present: atraumatic, normocephalic, normal inspection Eye exam: Present: normal appearance, PERRL, EOMI. Absent: scleral icterus, conjunctival injection, periorbital swelling ENT exam: Present: normal exam, mucous membranes moist Neck exam: Present: normal inspection. Absent: tenderness, meningismus, lymphadenopathy Respiratory exam: Present: normal lung sounds bilaterally. Absent: respiratory distress, wheezes, rales, rhonchi, stridor Cardiovascular Exam: Present: regular rate, normal rhythm, normal heart sounds. Absent: systolic murmur, diastolic murmur, rubs, gallop, clicks GI/Abdominal exam: Present: soft, normal bowel sounds. Absent: distended, tenderness, guarding, rebound, rigid Extremities exam: Present: normal inspection, full ROM, normal capillary refill. Absent: tenderness, pedal edema, joint swelling, calf tenderness Back exam: Present: normal inspection Neurological exam: Present: alert, oriented X3, CN II-XII intact Psychiatric exam: Present: normal affect, normal mood Skin exam: Present: warm, dry, normal color, other (Erythema to the mons region. No crepitance. She does have some ulceration of the skin noted in the inguinal fold. Some erythema under the bilateral breasts). Absent: rash Course Vital Signs 07/15/23 07/16/23 07/16/23 22:23 00:18 06:02 Temperature 98.2 F 98.0 F Pulse Rate 84 75 71 Respiratory 16 18 18 Rate Blood Pressure 146/86 142/69 150/77 O2 Sat by Pulse 95 95 94 L Oximetry Medical Decision Making - Medical Decision Making Was pt. sent in by a medical professional or institution (, PA, VETERINARIAN EPIDEMIOLOGIST, urgent care, hospital, or skilled nursing...) When possible be specific @ -No Did you speak to anyone other than the patient for history (EMS, parent, family, police, friend...)? What history was obtained from this source @ -No Did you review nursing and triage notes (agree or disagree)? Why? @ -I reviewed and agree with nursing and triage notes Were old charts reviewed (outside hosp., previous admission, EMS record, old EKG, old radiological studies, urgent care reports/EKG's, skilled nursing records)? Report findings @ -No old charts were reviewed Differential Diagnosis (chest pain, altered mental status, abdominal pain women, abdominal pain men, vaginal bleeding, weakness, fever, dyspnea, syncope, headache, dizziness, GI bleed, back pain, seizure, CVA, palpatations, mental health, musculoskeletal)? @ -Cellulitis, fungal infection, intertrigo EKG interpreted by me (3pts min.). @ -Not done X-rays interpreted by me (1pt min.). @ -None done CT interpreted by me (1pt min.). @ -None done U/S interpreted by me (1pt. min.). @ -None done What testing was considered but not performed or refused? (CT, X-rays, U/S, labs)? Why? @ -None What meds were considered but not given or refused? Why? @ -None Did you discuss the management of the patient with other professionals (professionals i.e. , PA, VETERINARIAN EPIDEMIOLOGIST, lab, RT, psych nurse, psychosocial rehabilitation counselor, mechanical shop laborer, teacher, administrative hearing officer, disability case manager)? Give summary @ -No Was smoking cessation discussed for >3mins.? @ -No Was critical care preformed (if so, how long)? @ -No Were there social determinants of health that impacted care today? How? (Homelessness, low income, unemployed, alcoholism, drug addiction, transportation, low edu. Level, literacy, decrease access to med. care, prison, rehab)? @ -No Was there de-escalation of care discussed even if they declined (Discuss DNR or withdrawal of care, Hospice)? DNR status @ -No What co-morbidities impacted this encounter? (DM, HTN, Smoking, COPD, CAD, Cancer, CVA, ARF, Chemo, Hep., AIDS, mental health diagnosis, sleep apnea, morbid obesity)? @ -Diabetes mellitus, obesity Was patient admitted / discharged? Hospital course, mention meds given and route, prescriptions, significant lab abnormalities, going to OR and other pertinent info. @ -On arrival, patient was placed into room 23. There are history of physical exam was performed. Patient reports that she is currently on antifungals and antibiotics and is feeling outpatient treatment. States she has been hospitalized several times for similar complaint. IV was established. Laboratory studies conducted. The cultures were obtained. Patient is initiated on antibiotics and barrier cream. Recommended admission for infectious disease consult. Patient was agreeable to this. Admitted to floor in stable condition Undiagnosed new problem with uncertain prognosis? @ -No Drug Therapy requiring intensive monitoring for toxicity (Heparin, Nitro, Insulin, Cardizem)? @ -No Were any procedures done? @ -No Diagnosis/symptom? @ -Acute on chronic intertrigo, pubic cellulitis Acute, or Chronic, or Acute on Chronic? @ -acute on chronic Uncomplicated (without systemic symptoms) or Complicated (systemic symptoms)? @ -complicated Side effects of treatment? @ -No Exacerbation, Progression, or Severe Exacerbation? @ -yes Poses a threat to life or bodily function? How? (Chest pain, [place], [place], pneumonia, PE, COPD, DKA, ARF, appy, cholecystitis, CVA, Diverticulitis, Homicidal, Suicidal, threat to staff... and all critical care pts) @ -No - Lab Data Result diagrams: 07/16/23 01:29 07/16/23 01:29 Lab Results 07/16/23 07/16/23 Range/Units 01:29 01:29 WBC 8.7 (3.8-10.6) k/uL RBC 4.46 (3.80-5.40) m/uL Hgb 12.5 (11.4-16.0) gm/dL Hct 37.5 (34.0-46.0) % MCV 84.2 (80.0-100.0) fL MCH 28.1 (25.0-35.0) pg MCHC 33.4 (31.0-37.0) g/dL RDW 13.6 (11.5-15.5) % Plt Count 414 (150-450) k/uL MPV 7.5 Neutrophils % 67 % Lymphocytes % 20 % Monocytes % 6 % Eosinophils % 4 % Basophils % 0 % Neutrophils # 5.8 (1.3-7.7) k/uL Lymphocytes # 1.8 (1.0-4.8) k/uL Monocytes # 0.5 (0-1.0) k/uL Eosinophils # 0.4 (0-0.7) k/uL Basophils # 0.0 (0-0.2) k/uL Sodium 134 L (137-145) mmol/L Potassium 4.4 (3.5-5.1) mmol/L Chloride 95 L (98-107) mmol/L Carbon Dioxide 30 (22-30) mmol/L Anion Gap 9 mmol/L BUN 9 (7-17) mg/dL Creatinine 0.83 (0.52-1.04) mg/dL Est GFR (CKD-EPI)AfAm >90 (>60 ml/min/1.73 sqM) Est GFR (CKD-EPI)NonAf 80 (>60 ml/min/1.73 sqM) Glucose 83 (74-99) mg/dL Calcium 9.5 (8.4-10.2) mg/dL Total Bilirubin 0.4 (0.2-1.3) mg/dL AST 26 (14-36) U/L ALT 17 (4-34) U/L Alkaline Phosphatase 108 (38-126) U/L Total Protein 7.4 (6.3-8.2) g/dL Albumin 4.0 (3.5-5.0) g/dL Disposition Clinical Impression: Cellulitis of perineum, Cutaneous candidiasis Disposition: ADMITTED IP TO THIS [facility] Condition: Stable Is patient prescribed a controlled substance at d/c from ED?: No Time of Disposition: : Decision to Admit Reason: Admit from EC Decision Date: 07/16/23 Decision Time: :
[2023-07-16] MEDS ORDERED: IBUPROFEN 400 MG TAB PO PRN (02:33)
[2023-07-16] MEDS ORDERED: NALOXONE 0.4 MG/ML 1 ML VIAL IV PRN (02:33)
[2023-07-16] MEDS ORDERED: DICYCLOMINE 10 MG CAP PO PRN (10:17)
[2023-07-16] MEDS ORDERED: hydrOXYzine pamoate 25 MG CAP PO PRN (10:17)
[2023-07-16] MEDS ORDERED: DEXTROSE 50% SYRINGE 50 ML IVP PRN ×2 (10:18)
[2023-07-16 12:09] LABS: Glucose,Whole Blood 107 mg/dL (70-110)
[2023-07-16] MEDS: INSULIN ASPART (NovoLOG) 100 UNIT/ML VIAL SQ SCH ×3 (12:19→20:59)
--- NOTE | 2023-07-16 13:00 | P.HPIM ---
History of Present Illness H&P Date: 07/16/23 History of present illness; patient is a 57-year-old lady with past medical hist ory significant for obesity, diabetes mellitus, hypertension presented the ER because of right groin redness. Patient stated that she was recently hospitalized at [facility] where she was diagnosed with having groin cellulitis and was treated with antibiotics. Patient was also given antif ungals. Patient stated she feels that the redness and pain in her right groin has not improved, she also thinks that it has spread to involve the left side as well. Denies any fever or chills. Denies any nausea or vomiting. Denies any lightheadedness or dizziness. Because of this patient came to the [facility]. Initial lab work done in the ER showed WBC 8.7, hemoglobin 12.5, platelet count 414, sodium 134, potassium 4.4, BUN 9, creatinine 0.83 patient admitted to medicine service REVIEW OF SYSTEMS: CONSTITUTIONAL: No fever, no malaise, no fatigue. HEENT: No recent visual problems or hearing problems. Denied any sore throat. CARDIOVASCULAR: No chest pain, orthopnea, PND, no palpitations, no syncope. PULMONARY: No shortness of breath, no cough, no hemoptysis. GASTROINTESTINAL: No diarrhea, no nausea, no vomiting, no abdominal pain. NEUROLOGICAL: No headaches, no weakness, no numbness. HEMATOLOGICAL: Denies any bleeding or petechiae. GENITOURINARY: Denies any burning micturition, frequency, or urgency. MUSCULOSKELETAL/RHEUMATOLOGICAL: Denies any joint pain, swelling, or any muscle pain. ENDOCRINE: Denies any polyuria or polydipsia. The rest of the 14-point review of systems is negative. PHYSICAL EXAMINATION: GENERAL: The patient is alert and oriented x3, not in any acute distress. Well developed, well nourished. HEENT: Pupils are round and equally reacting to light. EOMI. No scleral icterus. No conjunctival pallor. Normocephalic, atraumatic. No pharyngeal erythema. No thyromegaly. CARDIOVASCULAR: S1 and S2 present. No murmurs, rubs, or gallops. PULMONARY: Chest is clear to auscultation, no wheezing or crackles. ABDOMEN: Soft, nontender, nondistended, normoactive bowel sounds. No palpable organomegaly. MUSCULOSKELETAL: No joint swelling or deformity. EXTREMITIES: No cyanosis, clubbing, or pedal edema. NEUROLOGICAL: Gross neurological examination did not reveal any focal deficits. SKIN: Erythema involving bilateral groins, Assessment and plan Groin cellulitis Intertrigo Diabetes mellitus Hypertension Obesity Monitor vital signs Monitor CBC Monitor CMP Continue wound care Added nystatin Monitor blood sugar levels, continue sliding scale insulin Resume home meds Consult ID Labs and medication were reviewed.. Continue same treatment. Continue with symptomatic treatment. Resume home medication. Monitor labs and vitals. DVT and GI prophylaxis. Further recommendations as per clinical course of the patient Dictation was produced using [employer] dictation software. please excuse any grammatical, word or spelling errors. Past Medical History Past Medical History: Asthma, Chest Pain / Angina, Heart Failure, COPD, Diabetes Mellitus, Eye Disorder, Hypertension, Osteoarthritis (OA), Vascular Disorder Additional Past Medical History / Comment(s): VASCULITIS STATES IN REMISSION, NEUROPATHY TIESHA LEGS, LIMITED VISION TIESHA EYES, EDEMA TIESHA LEGS, SOB WITH ACTIVITY, HX OF ACUTE RENAL FAILURE, HAS RECENTLY BEEN PUT ON FLUID RESTRICTIONS History of Any Multi-Drug Resistant Organisms: None Reported Past Surgical History: Cholecystectomy, Heart Catheterization, Orthopedic Surgery Additional Past Surgical History / Comment(s): ARTHOSCOPY TIESHA KNEES, WRIST SX, CATARACT SX TIESHA, SKIN BX Past Anesthesia/Blood Transfusion Reactions: No Reported Reaction Additional Past Anesthesia/Blood Transfusion Reaction / Comment(s): STATES "HARD TIME WAKING UP" Date of Last Stent Placement:: 2013 Past Psychological History: Anxiety, Depression Smoking Status: Never smoker Past Alcohol Use History: None Reported Past Drug Use History: None Reported - Past Family History Mother Family Medical History: No Reported History Medications and Allergies Home Medications Medication Instructions Recorded Confirmed Type DULoxetine HCL [Cymbalta] 60 mg PO BID 08/02/16 07/16/23 History Oxybutynin Xl [Ditropan XL] 5 mg PO DAILY 08/02/16 07/16/23 History metFORMIN HCL [Glucophage] 500 mg PO BID 09/11/19 07/16/23 History Dicyclomine [Bentyl] 10 mg PO TID PRN 02/22/23 07/16/23 History Lurasidone [Latuda] 80 mg PO W/SUPPER 02/22/23 07/16/23 History Montelukast [Singulair] 10 mg PO HS 02/22/23 07/16/23 History Nitroglycerin Sl Tabs [Nitrostat] 0.4 mg SUBLINGUAL Q5M PRN 02/22/23 07/16/23 History OLANZapine [ZyPREXA] 10 mg PO HS 02/22/23 07/16/23 History Repaglinide [Prandin] 1 mg PO TID-W/MEALS 02/22/23 07/16/23 History Rosuvastatin [Crestor] 10 mg PO HS 02/22/23 07/16/23 History Potassium Chloride ER [K-Dur 20] 20 meq PO QAM 03/08/23 07/16/23 History Cephalexin [Keflex] 500 mg PO Q8HR 07/16/23 07/16/23 History Dulaglutide [Trulicity] 0.75 mg SQ WE 07/16/23 07/16/23 History Fluconazole 200 mg PO TU 07/16/23 07/16/23 History Furosemide [Lasix] 40 mg PO DAILY 07/16/23 07/16/23 History Metoprolol Tartrate [Lopressor] 25 mg PO BID 07/16/23 07/16/23 History Nystatin 100,000 Unit/gm Powd 1 applic TOPICAL BID 07/16/23 07/16/23 History [Mycostatin Powder] Nystatin 100,000Unit/gm Cream 1 applic TOPICAL BID 07/16/23 07/16/23 History [Mycostatin Cream] hydrOXYzine pamoate [Vistaril] 25 mg PO BID PRN 07/16/23 07/16/23 History Allergies Allergy/AdvReac Type Severity Reaction Status Date / Time hydrocodone [From Lortab] Allergy Unknown Rash/Hives Verified 07/16/23 08:12 sulfamethoxazole Allergy Rash/Hives Verified 07/16/23 08:12 [From Bactrim] trimethoprim [From Bactrim] Allergy Rash/Hives Verified 07/16/23 08:12 Physical Exam Vitals: Vital Signs Temp Pulse Resp BP Pulse Ox 07/16/23 06:02 71 18 150/77 94 L 07/16/23 00:18 98.0 F 75 18 142/69 95 07/15/23 22:23 98.2 F 84 16 146/86 95 Intake and Output 07/15/23 07/16/23 07/16/23 22:59 06:59 14:59 Other: Weight 100.698 kg Results CBC & Chem 7: 07/16/23 01:29 07/16/23 01:29 Labs: Abnormal Lab Results - Last 24 Hours (Table) 07/16/23 Range/Units 01:29 Sodium 134 L (137-145) mmol/L Chloride 95 L (98-107) mmol/L
[2023-07-16] MEDS ORDERED: ANIDULAFUNGIN 200 MG in SODIUM CHLORIDE 0.9% 200 ML IVPB ONE (13:15)
[2023-07-16] MEDS: REPAGLINIDE 1 MG TAB PO SCH ×2 (14:10→17:25)
[2023-07-16] MEDS: AMPICILLIN-SULBACTAM 3 GM in SODIUM CHLORIDE 0.9% 100 ML IVPB SCH ×2 (14:15→20:00)
[2023-07-16] MEDS: ACETAMINOPHEN TAB 325 MG TAB PO PRN (16:29)
[2023-07-16 17:21] LABS: Glucose,Whole Blood 146 mg/dL (70-110)
[2023-07-16] MEDS: NYSTATIN 100,000 UNIT/GM POWD 15 GM TOPICAL SCH ×2 (17:22→19:59)
[2023-07-16] MEDS: LURASIDONE 80 MG TAB PO SCH (17:23)
[2023-07-16] MEDS: METOPROLOL TARTRATE 25 MG TAB PO SCH (19:59)
[2023-07-16] MEDS: DULoxetine HCL 60 MG CAPSULE.DR PO SCH (19:59)
[2023-07-16] MEDS: ATORVASTATIN 20 MG TAB PO SCH (19:59)
[2023-07-16] MEDS: NYSTATIN 100,000UNIT/GM CREAM 30 GM TUBE TOPICAL SCH (19:59)
[2023-07-16] MEDS: MONTELUKAST 10 MG TAB PO SCH (19:59)
[2023-07-16 20:53] LABS: Glucose,Whole Blood 111 mg/dL (70-110)
[2023-07-16] MEDS: OLANZapine 10 MG TAB PO SCH (22:05)
--- NOTE | 2023-07-16 22:25 | P.CONS ---
History of Present Illness - Reason for Consult Consult date: 07/16/23 - History of Present Illness Patient is a 57-year-old female with a past medical history significant for diabetes mellitus hypertension COPD in this patient who did have a history of recurrent groin area cutaneous candidiasis and cellulitis for the patient has multiple admissions to the hospital patient is presenting to [facility] ER earlier this morning concerning for increasing swelling redness irritation to bilateral groin and pubic area patient describing it to be sharp intensity could be almost 8 out of 10 without any radiation with associated swelling redness and did have some foul-smelling drainage patient apparently has been treated with oral Diflucan however the patient did not have any improvement has been complaining of mostly burning pain with this and with the patient present to the hospital on arrival to the ER the patient was afebrile and no fever has been gone subsequently patient did have a normal white count kidney function was normal liver enzymes are normal patient has been admitted to hospital infectious disease was consulted for further management of antibiotic therapy Past Medical History Past Medical History: Asthma, Chest Pain / Angina, Heart Failure, COPD, Diabetes Mellitus, Eye Disorder, Hypertension, Osteoarthritis (OA), Vascular Disorder Additional Past Medical History / Comment(s): VASCULITIS STATES IN REMISSION, NEUROPATHY TIESHA LEGS, LIMITED VISION TIESHA EYES, EDEMA TIESHA LEGS, SOB WITH ACT IVITY, HX OF ACUTE RENAL FAILURE, HAS RECENTLY BEEN PUT ON FLUID RESTRICTIONS History of Any Multi-Drug Resistant Organisms: None Reported Past Surgical History: Cholecystectomy, Heart Catheterization, Orthopedic Surgery Additional Past Surgical History / Comment(s): ARTHOSCOPY TIESHA KNEES, WRIST SX, CATARACT SX TIESHA, SKIN BX Past Anesthesia/Blood Transfusion Reactions: No Reported Reaction Additional Past Anesthesia/Blood Transfusion Reaction / Comm: STATES "HARD TIME WAKING UP" Date of Last Stent Placement:: 2013 Past Psychological History: Anxiety, Depression Smoking Status: Never smoker Past Alcohol Use History: None Reported Past Drug Use History: None Reported - Past Family History Mother Family Medical History: No Reported History Medications and Allergies Home Medications Medication Instructions Recorded Confirmed Type DULoxetine HCL [Cymbalta] 60 mg PO BID 08/02/16 07/16/23 History Oxybutynin Xl [Ditropan XL] 5 mg PO DAILY 08/02/16 07/16/23 History metFORMIN HCL [Glucophage] 500 mg PO BID 09/11/19 07/16/23 History Dicyclomine [Bentyl] 10 mg PO TID PRN 02/22/23 07/16/23 History Lurasidone [Latuda] 80 mg PO W/SUPPER 02/22/23 07/16/23 History Montelukast [Singulair] 10 mg PO HS 02/22/23 07/16/23 History Nitroglycerin Sl Tabs [Nitrostat] 0.4 mg SUBLINGUAL Q5M PRN 02/22/23 07/16/23 History OLANZapine [ZyPREXA] 10 mg PO HS 02/22/23 07/16/23 History Repaglinide [Prandin] 1 mg PO TID-W/MEALS 02/22/23 07/16/23 History Rosuvastatin [Crestor] 10 mg PO HS 02/22/23 07/16/23 History Potassium Chloride ER [K-Dur 20] 20 meq PO QAM 03/08/23 07/16/23 History Cephalexin [Keflex] 500 mg PO Q8HR 07/16/23 07/16/23 History Dulaglutide [Trulicity] 0.75 mg SQ WE 07/16/23 07/16/23 History Fluconazole 200 mg PO TU 07/16/23 07/16/23 History Furosemide [Lasix] 40 mg PO DAILY 07/16/23 07/16/23 History Metoprolol Tartrate [Lopressor] 25 mg PO BID 07/16/23 07/16/23 History Nystatin 100,000 Unit/gm Powd 1 applic TOPICAL BID 07/16/23 07/16/23 History [Mycostatin Powder] Nystatin 100,000Unit/gm Cream 1 applic TOPICAL BID 07/16/23 07/16/23 History [Mycostatin Cream] hydrOXYzine pamoate [Vistaril] 25 mg PO BID PRN 07/16/23 07/16/23 History Allergies Allergy/AdvReac Type Severity Reaction Status Date / Time hydrocodone [From Lortab] Allergy Unknown Rash/Hives Verified 07/16/23 08:12 sulfamethoxazole Allergy Rash/Hives Verified 07/16/23 08:12 [From Bactrim] trimethoprim [From Bactrim] Allergy Rash/Hives Verified 07/16/23 08:12 Physical Exam Vitals: Vital Signs Temp Pulse Resp BP Pulse Ox 07/16/23 06:02 71 18 150/77 94 L 07/16/23 00:18 98.0 F 75 18 142/69 95 07/15/23 22:23 98.2 F 84 16 146/86 95 Intake and Output 07/15/23 07/16/23 07/16/23 22:59 06:59 14:59 Other: Weight 100.698 kg Results CBC & Chem 7: 07/16/23 01:29 07/16/23 01:29 Labs: Abnormal Lab Results - Last 24 Hours (Table) 07/16/23 Range/Units 01:29 Sodium 134 L (137-145) mmol/L Chloride 95 L (98-107) mmol/L Assessment and Plan Plan: 1patient with extensive groin area cutaneous candidiasis and concerning for secondary bacterial cellulitis in this patient failing outpatient oral Diflucan therapy concern for possible resistant fungal infection and will also need to cover for to be possible bacterial cellulitis likely gram-negative 2-we will start the patient on Eraxis and Unasyn combination and continue with the nystatin powder to the groin area to keep the area dry 3-check inflammatory markers We will follow on clinical condition and cultures to further adjust medication if needed Thank you for this consultation we will follow the patient along with you Dictation was produced using [employer] dictation software. please excuse any grammatical, word or spelling errors. Time with Patient: Greater than 30
[2023-07-17] MEDS: AMPICILLIN-SULBACTAM 3 GM in SODIUM CHLORIDE 0.9% 100 ML IVPB SCH ×4 (01:10→17:46)
[2023-07-17] MEDS: ACETAMINOPHEN TAB 325 MG TAB PO PRN ×2 (02:05→20:24)
[2023-07-17 06:07] LABS: Basophils % (A) 0 %; Eosinophils # (A) 0.3 k/uL (0-0.7); Eosinophils % (A) 5 %; HGB 12.8 gm/dL (11.4-16.0); Lymphocytes # (A) 1.2 k/uL (1.0-4.8); Lymphocytes % (A) 17 %; MCH 28.4 pg (25.0-35.0); MCHC 32.9 g/dL (31.0-37.0); MCV 86.5 fL (80.0-100.0); Mean Platelet Volume 6.7; Monocytes # (A) 0.3 k/uL (0-1.0); Monocytes % (A) 5 %; Neutrophils # (A) 4.9 k/uL (1.3-7.7); Neutrophils % (A) 71 %; Platelet Count 337 k/uL (150-450); RBC 4.51 m/uL (3.80-5.40); RDW 13.7 % (11.5-15.5); WBC 6.9 k/uL (3.8-10.6)
[2023-07-17 06:11] LABS: Glucose,Whole Blood 107 mg/dL (70-110)
[2023-07-17] MEDS: INSULIN ASPART (NovoLOG) 100 UNIT/ML VIAL SQ SCH ×4 (06:27→20:53)
[2023-07-17 06:36] LABS: African American GFR (CKD) >90 (>60 ml/min/1.73 sqM); Anion Gap 8 mmol/L; Blood Urea Nitrogen 5 mg/dL (7-17); Carbon Dioxide 31 mmol/L (22-30); Chloride 99 mmol/L (98-107); Glucose 106 mg/dL (74-99); Non-African American GFR(CKD) >90 (>60 ml/min/1.73 sqM); Potassium 4.1 mmol/L (3.5-5.1); Sodium 138 mmol/L (137-145)
[2023-07-17] MEDS: REPAGLINIDE 1 MG TAB PO SCH ×3 (06:37→17:43)
[2023-07-17 07:48] VITALS: BMI 40.6
[2023-07-17] MEDS: FUROSEMIDE 40 MG TAB PO SCH (10:19)
[2023-07-17] MEDS: OXYBUTYNIN XL 5 MG TAB.ER.24 PO SCH (10:19)
[2023-07-17] MEDS: POTASSIUM CHLORIDE ER 20 MEQ TAB.ER PO SCH (10:20)
[2023-07-17] MEDS: ANIDULAFUNGIN 100 MG in SODIUM CHLORIDE 0.9% 100 ML IVPB SCH (10:20)
[2023-07-17] MEDS: METOPROLOL TARTRATE 25 MG TAB PO SCH ×2 (10:20→20:24)
[2023-07-17] MEDS: DULoxetine HCL 60 MG CAPSULE.DR PO SCH ×2 (10:20→20:24)
[2023-07-17] MEDS: NYSTATIN 100,000UNIT/GM CREAM 30 GM TUBE TOPICAL SCH ×2 (10:28→20:25)
[2023-07-17] MEDS: NYSTATIN 100,000 UNIT/GM POWD 15 GM TOPICAL SCH ×3 (10:28→20:25)
[2023-07-17 12:16] LABS: Glucose,Whole Blood 89 mg/dL (70-110)
--- NOTE | 2023-07-17 12:59 | P.PN ---
Subjective Progress Note Date: 07/17/23 * 57-year-old lady with past medical history significant for obesity, diabetes mellitus, hypertension presented the ER because of right groin redness. Patient stated that she was recently hospitalized at [facility] where she was diagnosed with having groin cellulitis and was treated with antibiotics. Patient was also given antifungals. Patient stated she feels that the redness and pain in her right groin has not improved, she also thinks that it has spread to involve the left side as well. Denies any fever or chills. Denies any nausea or vomiting. Denies any lightheadedness or dizziness. Because of this patient came to the [facility]. * Initial lab work done in the ER showed WBC 8.7, hemoglobin 12.5, platelet count 414, sodium 134, potassium 4.4, BUN 9, creatinine 0.83 * Consultations obtained from infectious disease * 07/17: Patient seen and evaluated bedside. Continue patient on IV Unasyn, IV antifungal. Seen by infectious disease continue with wound care. Blood work reviewed K plan discussed with her discharge planning discussed Objective - Vital Signs Vital signs: Vital Signs Temp 98.2 F 07/17/23 07:00 Pulse 73 07/17/23 08:00 Resp 16 07/17/23 08:00 BP 161/84 07/17/23 07:00 Pulse Ox 98 07/17/23 07:00 FiO2 Intake & Output 07/16/23 07/17/23 07/17/23 18:59 06:59 18:59 Intake Total 118 Balance 118 Weight 100.698 kg 100.698 kg Intake: Oral 118 Other: Voiding Method Toilet Toilet # Voids 1 1 - Exam PHYSICAL EXAMINATION: GENERAL: The patient is alert and oriented x3, not in any acute distress. Well developed, well nourished. Obese, ill appearance HEENT: Pupils are round and equally reacting to light. EOMI. No scleral icterus. No conjunctival pallor. Normocephalic, atraumatic. No pharyngeal erythema. No thyromegaly. CARDIOVASCULAR: S1 and S2 present. No murmurs, rubs, or gallops. PULMONARY: Chest is clear to auscultation, no wheezing or crackles. ABDOMEN: Soft, nontender, nondistended, normoactive bowel sounds. No palpable organomegaly. MUSCULOSKELETAL: No joint swelling or deformity. EXTREMITIES: No cyanosis, clubbing, or pedal edema. NEUROLOGICAL: Gross neurological examination did not reveal any focal deficits. SKIN: Intertrigo, rash noted underneath breasts, bilateral groin - Labs CBC & Chem 7: 07/17/23 05:50 07/17/23 05:50 Labs: Abnormal Lab Results - Last 24 Hours (Table) 07/16/23 07/16/23 07/17/23 Range/Units 17:19 20:52 05:50 Carbon Dioxide (22-30) mmol/L BUN (7-17) mg/dL Glucose (74-99) mg/dL POC Glucose (mg/dL) 146 H 111 H (70-110) mg/dL Hemoglobin A1c 6.4 H (<=6.0) % C-Reactive Protein (<1.0) mg/dL 07/17/23 Range/Units 05:50 Carbon Dioxide 31 H (22-30) mmol/L BUN 5 L (7-17) mg/dL Glucose 106 H (74-99) mg/dL POC Glucose (mg/dL) (70-110) mg/dL Hemoglobin A1c (<=6.0) % C-Reactive Protein 4.0 H (<1.0) mg/dL Assessment and Plan Assessment: Assessment and plan * Cellulitis involving groin * Intertrigo * Obesity * Hypertension * Diabetes mellitus type 2 * History of pulmonary hypertension * In regards to cellulitis continue IV antibiotic on IV Unasyn and Eraxis, infectious disease on consult. Continue with local wound care * In regards to hypertension, continue Lasix, monitor for hypotension while on antibiotic and getting treated for infection * In regards to diabetes mellitus continue patient on sliding scale insulin. * Follow-up on CBC and CMP * Lovenox for DVT prophylaxis
[2023-07-17 17:12] LABS: Glucose,Whole Blood 97 mg/dL (70-110)
[2023-07-17] MEDS: LURASIDONE 80 MG TAB PO SCH (17:43)
--- NOTE | 2023-07-17 17:51 | P.PN ---
Subjective Progress Note Date: 07/17/23 Principal diagnosis: Extensive groin area cutaneous candidiasis and cellulitis Patient is a 57-year-old female with a past medical history significant for diabetes mellitus hypertension COPD in this patient who did have a history of recurrent groin area cutaneous candidiasis and cellulitis for the patient has multiple admissions to the hospital patient is presenting to [facility] with worsening pain swelling redness or drainage to bilateral groin and pubic area. On today's evaluation that is 07/17/2023, the patient denies any fever or any chills, the patient is breathing comfortably , the patient denies chest pain or cough, the patient denies nausea and vomiting no abdominal pain and no diarrhea has been reported, the patient pain and discomfort to the pubic and groin area has decreased in intensity Patient did have a white count of 6.0 and creatinine 0.61 Objective - Vital Signs Vital signs: Vital Signs Temp 97.8 F 07/17/23 14:42 Pulse 70 07/17/23 14:42 Resp 16 07/17/23 14:42 BP 134/86 07/17/23 14:42 Pulse Ox 97 07/17/23 14:42 FiO2 Intake & Output 07/16/23 07/17/23 07/17/23 18:59 06:59 18:59 Intake Total 118 Balance 118 Weight 100.698 kg 100.698 kg Intake: Oral 118 Other: Voiding Method Toilet Toilet # Voids 1 1 3 - Exam GENERAL DESCRIPTION: Middle-aged female lying in bed in no distress RESPIRATORY SYSTEM: Unlabored breathing , decreased breath sounds at bases HEART: S1 S2 regular rate and rhythm , ABDOMEN: Soft , no tenderness , groin groin area swelling redness and excoriation has decreased in intensity EXTREMITIES: No edema feet - Labs CBC & Chem 7: 07/17/23 05:50 07/17/23 05:50 Labs: Abnormal Lab Results - Last 24 Hours (Table) 07/16/23 07/17/23 07/17/23 Range/Units 20:52 05:50 05:50 Carbon Dioxide 31 H (22-30) mmol/L BUN 5 L (7-17) mg/dL Glucose 106 H (74-99) mg/dL POC Glucose (mg/dL) 111 H (70-110) mg/dL Hemoglobin A1c 6.4 H (<=6.0) % C-Reactive Protein 4.0 H (<1.0) mg/dL Microbiology - Last 24 Hours (Table) 07/16/23 01:33 Blood Culture - Preliminary Blood 07/16/23 01:10 Blood Culture - Preliminary Blood Assessment and Plan (1) Cellulitis of perineum Current Visit: Yes Status: Acute Code(s): L03.315 - CELLULITIS OF PERINEUM SNOMED Code(s): 67058194 (2) Cutaneous candidiasis Current Visit: Yes Status: Acute Code(s): B37.2 - CANDIDIASIS OF SKIN AND NAIL SNOMED Code(s): 03089018 Plan: 1patient with extensive groin area cutaneous candidiasis and concerning for secondary bacterial cellulitis in this patient failing outpatient oral Diflucan therapy concern for possible resistant fungal infection and will also need to cover for to be possible bacterial cellulitis likely gram-negative 2-patient to continue with Eraxis and Unasyn combination and continue with the nystatin powder to the groin area to keep the area dry 3-Will need midline for outpatient IV Eraxis, discussed with the nursing staff Dictation was produced using [employer] dictation software. please excuse any gramma tical, word or spelling errors. Time with Patient: Less than 30
[2023-07-17] MEDS: ATORVASTATIN 20 MG TAB PO SCH (20:24)
[2023-07-17] MEDS: MONTELUKAST 10 MG TAB PO SCH (20:24)
[2023-07-17 20:51] LABS: Glucose,Whole Blood 132 mg/dL (70-110)
[2023-07-17] MEDS: OLANZapine 10 MG TAB PO SCH (21:18)
[2023-07-18] MEDS: AMPICILLIN-SULBACTAM 3 GM in SODIUM CHLORIDE 0.9% 100 ML IVPB SCH ×3 (00:13→12:55)
[2023-07-18 05:56] LABS: Glucose,Whole Blood 130 mg/dL (70-110)
[2023-07-18] MEDS: INSULIN ASPART (NovoLOG) 100 UNIT/ML VIAL SQ SCH ×2 (06:19→12:17)
[2023-07-18] MEDS: REPAGLINIDE 1 MG TAB PO SCH ×2 (06:29→12:55)
[2023-07-18 08:22] VITALS: RESP 16
[2023-07-18] MEDS: POTASSIUM CHLORIDE ER 20 MEQ TAB.ER PO SCH ×2 (08:51→08:52)
[2023-07-18] MEDS: ANIDULAFUNGIN 100 MG in SODIUM CHLORIDE 0.9% 100 ML IVPB SCH (08:51)
[2023-07-18] MEDS: METOPROLOL TARTRATE 25 MG TAB PO SCH (08:51)
[2023-07-18] MEDS: FUROSEMIDE 40 MG TAB PO SCH (08:52)
[2023-07-18] MEDS: OXYBUTYNIN XL 5 MG TAB.ER.24 PO SCH (08:52)
[2023-07-18] MEDS: NYSTATIN 100,000 UNIT/GM POWD 15 GM TOPICAL SCH (08:52)
[2023-07-18] MEDS: NYSTATIN 100,000UNIT/GM CREAM 30 GM TUBE TOPICAL SCH (08:52)
[2023-07-18] MEDS: DULoxetine HCL 60 MG CAPSULE.DR PO SCH (08:52)
[2023-07-18 08:56] LABS: HCT 39.2 % (37.2-46.3); HGB 12.2 d/dL (12.0-15.0); MCH 27.1 pg (27.0-32.0); MCHC 31.1 d/dL (32.0-37.0); MCV 86.9 FL (80.0-97.0); Mean Platelet Volume 9.3 FL (9.5-12.2); NRBC Per 100 WBC 0 X 10*3/uL (0.00-0.01); Platelet Count 410 X 10*3/uL (140-440); RBC 4.51 X 10*6/uL (4.10-5.20); RDW 13.4 % (11.5-14.5); WBC 8.72 X 10*3/uL (4.50-10.00)
[2023-07-18] MEDS ORDERED: ENOXAPARIN 40 MG/0.4 ML SYRINGE SQ SCH (09:00)
[2023-07-18 09:22] LABS: BUN/Creat Ratio 7.88 Ratio (12.00-20.00); Blood Urea Nitrogen 6.3 mg/dL (9.0-27.0); Calcium 9.3 mg/dL (8.7-10.3); Carbon Dioxide 29.2 mmol/L (21.6-31.8); Chloride 101 mmol/L (96-109); Glucose 104 mg/dL (70-110); Potassium 4.2 mmol/L (3.5-5.5); Sodium 140 mmol/L (135-145)
[2023-07-18 12:15] LABS: Glucose,Whole Blood 123 mg/dL (70-110)
--- NOTE | 2023-07-18 13:48 | P.DS ---
Providers Date of admission: 07/16/23 02:37 Expected date of discharge: 07/18/23 Attending physician: Zonia Polanco Consults: 07/16/23 02:33 Consult Physician Urgent Consulting Provider: Malka Yeboah Consult Reason/Comments: intertrigo Do you want consulting provider notified?: Yes Primary care physician: Elsa [facility] Course: * 57-year-old lady with past medical history significant for obesity, diabetes mellitus, hypertension presented the ER because of right groin redness. Patient stated that she was recently hospitalized at [facility] where she was diagnosed with having groin cellulitis and was treated with antibiotics. Patient was also given antifungals. Patient stated she feels that the redness and pain in her right groin has not improved, she also thinks that it has spread to involve the left side as well. Denies any fever or chills. Denies any nausea or vomiting. Denies any lightheadedness or dizziness. Because of this patient came to the [facility]. * Initial lab work done in the ER showed WBC 8.7, hemoglobin 12.5, platelet count 414, sodium 134, potassium 4.4, BUN 9, creatinine 0.83 * Consultations obtained from infectious disease * 07/17: Patient seen and evaluated bedside. Continue patient on IV Unasyn, IV antifungal. Seen by infectious disease continue with wound care. Blood work reviewed K plan discussed with her discharge planning discussed * 07/18: Patient seen and evaluated bedside. Patient to receive Reglan and discharged home on IV Eraxis. Oral Augmentin prescribed as well patient will need outpatient follow-up with infectious disease and primary care physician. Dad work reviewed. Patient remains hemodynamically stable. Patient was tolerating IV amoxicillin while inpatient and transition to oral Augmentin at the time of discharge PHYSICAL EXAMINATION: GENERAL: The patient is alert and oriented x3, not in any acute distress. Well developed, well nourished. Obese, ill appearance HEENT: Pupils are round and equally reacting to light. EOMI. No scleral icterus. No conjunctival pallor. Normocephalic, atraumatic. No pharyngeal erythema. No thyromegaly. CARDIOVASCULAR: S1 and S2 present. No murmurs, rubs, or gallops. PULMONARY: Chest is clear to auscultation, no wheezing or crackles. ABDOMEN: Soft, nontender, nondistended, normoactive bowel sounds. No palpable organomegaly. MUSCULOSKELETAL: No joint swelling or deformity. EXTREMITIES: No cyanosis, clubbing, or pedal edema. NEUROLOGICAL: Gross neurological examination did not reveal any focal deficits. SKIN: Intertrigo, rash noted underneath breasts, bilateral groin Assessment: Assessment and plan * Cellulitis involving groin * Intertrigo * Obesity * Hypertension * Diabetes mellitus type 2 * History of pulmonary hypertension * In regards to cellulitis continue IV antibiotic on IV Unasyn and Eraxis, infectious disease on consult. Continue with local wound care, upon discharge continue Augmentin and Eraxis * In regards to hypertension, home regimen continued without changes * In regards to diabetes mellitus regimen continued without changes * Discharged home in a stable condition patient requesting discharge throughout the day. 13 to leave. Care plan coordinated with ID hence discharged home Patient Condition at Discharge: Stable Plan - Discharge Summary Discharge Rx Participant: No New Discharge Prescriptions: New Anidulafungin [Eraxis] 100 mg IVPB DAILY each Amoxic-Pot Clav 875-125Mg [Augmentin 875-125] 1 tab PO Q12HR 7 Days #14 tab Continue DULoxetine HCL [Cymbalta] 60 mg PO BID Oxybutynin Xl [Ditropan XL] 5 mg PO DAILY metFORMIN HCL [Glucophage] 500 mg PO BID Lurasidone [Latuda] 80 mg PO W/SUPPER OLANZapine [ZyPREXA] 10 mg PO HS Potassium Chloride ER [K-Dur 20] 20 meq PO QAM Furosemide [Lasix] 40 mg PO DAILY hydrOXYzine pamoate [Vistaril] 25 mg PO BID PRN PRN Reason: Anxiety Metoprolol Tartrate [Lopressor] 25 mg PO BID Nystatin 100,000 Unit/gm Powd [Mycostatin Powder] 1 applic TOPICAL BID Repaglinide [Prandin] 1 mg PO TID-W/MEALS Dicyclomine [Bentyl] 10 mg PO TID PRN PRN Reason: Gi Upset Rosuvastatin [Crestor] 10 mg PO HS Nitroglycerin Sl Tabs [Nitrostat] 0.4 mg SUBLINGUAL Q5M PRN PRN Reason: Chest Pain Montelukast [Singulair] 10 mg PO HS Dulaglutide [Trulicity] 0.75 mg SQ WE Nystatin 100,000Unit/gm Cream [Mycostatin Cream] 1 applic TOPICAL BID Discontinued Cephalexin [Keflex] 500 mg PO Q8HR Fluconazole 200 mg PO TU Discharge Medication List DULoxetine HCL [Cymbalta] 60 mg PO BID 08/02/16 [History] Oxybutynin Xl [Ditropan XL] 5 mg PO DAILY 08/02/16 [History] metFORMIN HCL [Glucophage] 500 mg PO BID 09/11/19 [History] Dicyclomine [Bentyl] 10 mg PO TID PRN 02/22/23 [History] Lurasidone [Latuda] 80 mg PO W/SUPPER 02/22/23 [History] Montelukast [Singulair] 10 mg PO HS 02/22/23 [History] Nitroglycerin Sl Tabs [Nitrostat] 0.4 mg SUBLINGUAL Q5M PRN 02/22/23 [History] OLANZapine [ZyPREXA] 10 mg PO HS 02/22/23 [History] Repaglinide [Prandin] 1 mg PO TID-W/MEALS 02/22/23 [History] Rosuvastatin [Crestor] 10 mg PO HS 02/22/23 [History] Potassium Chloride ER [K-Dur 20] 20 meq PO QAM 03/08/23 [History] Dulaglutide [Trulicity] 0.75 mg SQ WE 07/16/23 [History] Furosemide [Lasix] 40 mg PO DAILY 07/16/23 [History] Metoprolol Tartrate [Lopressor] 25 mg PO BID 07/16/23 [History] Nystatin 100,000 Unit/gm Powd [Mycostatin Powder] 1 applic TOPICAL BID 07/16/23 [History] Nystatin 100,000Unit/gm Cream [Mycostatin Cream] 1 applic TOPICAL BID 07/16/23 [History] hydrOXYzine pamoate [Vistaril] 25 mg PO BID PRN 07/16/23 [History] Amoxic-Pot Clav 875-125Mg [Augmentin 875-125] 1 tab PO Q12HR 7 Days #14 tab 07/18/23 [Rx] Anidulafungin [Eraxis] 100 mg IVPB DAILY each 07/18/23 [Rx] Follow up Appointment(s)/Referral(s): Elsa Cedeño MD [Primary Care Provider] - 1-2 days [facility], [NON-STAFF] - As Needed ([facility] will call you to schedule your in home nursing visits to begin IV antibiotic teaching. Your first visit will be tomorrow and they will call you with the time. ) [facility], [REFERRING] - As Needed ([facility] will deliver the antibiotic supplies to your house this evening between 6-8pm. ) Malka Yeboah MD [STAFF PHYSICIAN] - 1 Week Discharge Disposition: HOME SELF-CARE
[2023-07-18 17:22] LABS: Glucose,Whole Blood 155 mg/dL (70-110)
[2023-07-19 15:43] VITALS: BP 163/93; PULSE 71; TEMP 97.8
== END 2023-07-18 17:25 | disposition home or self-care (01) ==
LOC: EC 22:15 → 6NMEDSUR 07-16 02:37
PROVIDERS: ADMIT Hospitalist; ATTEND Hospitalist
DX: B37.9 Candidiasis, unspecified (principal); L30.4 Erythema intertrigo; E11.40 Type 2 diabetes mellitus with diabetic neuropathy, unspecified; R60.9 Edema, unspecified; J44.9 Chronic obstructive pulmonary disease, unspecified; I10 Essential (primary) hypertension; Z86.79 Personal history of other diseases of the circulatory system; H54.7 Unspecified visual loss; I11.0 Hypertensive heart disease with heart failure; I50.9 Heart failure, unspecified; M19.90 Unspecified osteoarthritis, unspecified site; E66.9 Obesity, unspecified; Z68.41 Body mass index [BMI] 40.0-44.9, adult; F41.9 Anxiety disorder, unspecified; F32.A Depression, unspecified; Z79.84 Long term (current) use of oral hypoglycemic drugs; Z79.899 Other long term (current) drug therapy; Z88.5 Allergy status to narcotic agent; Z88.2 Allergy status to sulfonamides; Z90.49 Acquired absence of other specified parts of digestive tract; Z98.42 Cataract extraction status, left eye; Z98.41 Cataract extraction status, right eye; Z98.890 Other specified postprocedural states; Z86.19 Personal history of other infectious and parasitic diseases
CPT/HCPCS: 96366 ×4; 96372 ×2; 96365; 99284; 36415; 36410; 76937; 80053; 80048 ×2; 85025 ×2; 85027; 86140 ×2; 87040; 83036; 84145 ×2; G0378 ×3; C1751; J1650; J0295 ×3; J0348 ×3

== ENCOUNTER 2024-03-30 00:03 | Emergency (ER) | payer MEDICARE, OTHER ==
[2024-03-30 01:09] VITALS: RESP 18; TEMP 97.5
[2024-03-30 01:39] LABS: Basophils % (A) 1 %; Eosinophils # (A) 0.2 k/uL (0-0.7); Eosinophils % (A) 2 %; HCT 40.1 % (34.0-46.0); HGB 13.4 gm/dL (11.4-16.0); Lymphocytes # (A) 1.7 k/uL (1.0-4.8); Lymphocytes % (A) 20 %; MCHC 33.4 g/dL (31.0-37.0); MCV 86.8 fL (80.0-100.0); Mean Platelet Volume 7.2; Monocytes # (A) 0.4 k/uL (0-1.0); Monocytes % (A) 5 %; Neutrophils # (A) 5.8 k/uL (1.3-7.7); Neutrophils % (A) 70 %; Platelet Count 457 k/uL (150-450); RBC 4.62 m/uL (3.80-5.40); RDW 12.5 % (11.5-15.5); WBC 8.2 k/uL (3.8-10.6)
[2024-03-30 01:49] LABS: Partial Thromboplastin Time 24.2 sec (22.0-30.0); Prothrombin Time 11.3 sec (10.0-12.5)
--- NOTE | 2024-03-30 01:54 | ED ---
Chest Pain HPI - General Chief Complaint: Chest Pain Stated Complaint: Chest pain, racing heart Time Seen by Provider: 03/30/24 00:20 Source: patient Mode of arrival: ambulatory Limitations: no limitations - History of Present Illness Initial Comments: Patient is a pleasant 58-year-old female presents the ER today for evaluation of chest pain. Patient reports she has had chest pain every day for a number of years, she states that lately she has been having some palpitations she was seen in outside hospital and told she may have A-fib but then told she was not in A- fib. She has followed up with Dr. Stanley her obstetric anaesthetist she wore a heart monitor but has not had the results of that. Patient states she is just feeling really anxious about what the results are and if there could be something wrong with her heart. Patient states that this anxiety is making her have more chest pain. Patient also notes that she was previously scribed CPAP for obstructive sleep apnea but was noncompliant and her insurance will no longer cover CPAP due to her history of noncompliance and she no longer has a machine to use. - Related Data Home Medications Medication Instructions Recorded Confirmed DULoxetine HCL [Cymbalta] 60 mg PO BID 08/02/16 07/16/23 Oxybutynin Xl [Ditropan XL] 5 mg PO DAILY 08/02/16 07/16/23 metFORMIN HCL [Glucophage] 500 mg PO BID 09/11/19 07/16/23 Dicyclomine [Bentyl] 10 mg PO TID PRN 02/22/23 07/16/23 Lurasidone [Latuda] 80 mg PO W/SUPPER 02/22/23 07/16/23 Montelukast [Singulair] 10 mg PO HS 02/22/23 07/16/23 Nitroglycerin Sl Tabs [Nitrostat] 0.4 mg SUBLINGUAL Q5M PRN 02/22/23 07/16/23 OLANZapine [ZyPREXA] 10 mg PO HS 02/22/23 07/16/23 Repaglinide [Prandin] 1 mg PO TID-W/MEALS 02/22/23 07/16/23 Rosuvastatin [Crestor] 10 mg PO HS 02/22/23 07/16/23 Potassium Chloride ER [K-Dur 20] 20 meq PO QAM 03/08/23 07/16/23 Dulaglutide [Trulicity] 0.75 mg SQ WE 07/16/23 07/16/23 Furosemide [Lasix] 40 mg PO DAILY 07/16/23 07/16/23 Metoprolol Tartrate [Lopressor] 25 mg PO BID 07/16/23 07/16/23 Nystatin 100,000 Unit/gm Powd 1 applic TOPICAL BID 07/16/23 07/16/23 [Mycostatin Powder] Nystatin 100,000Unit/gm Cream 1 applic TOPICAL BID 07/16/23 07/16/23 [Mycostatin Cream] hydrOXYzine pamoate [Vistaril] 25 mg PO BID PRN 07/16/23 07/16/23 Previous Rx's Medication Instructions Recorded Amoxic-Pot Clav 875-125Mg 1 tab PO Q12HR 7 Days #14 tab 07/18/23 [Augmentin 875-125] Anidulafungin [Eraxis] 100 mg IVPB DAILY each 07/18/23 Allergies Allergy/AdvReac Type Severity Reaction Status Date / Time hydrocodone [From Lortab] Allergy Unknown Rash/Hives Verified 03/30/24 00:08 sulfamethoxazole Allergy Rash/Hives Verified 03/30/24 00:08 [From Bactrim] trimethoprim [From Bactrim] Allergy Rash/Hives Verified 03/30/24 00:08 Review of Systems ROS Statement: Those systems with pertinent positive or pertinent negative responses have been documented in the HPI. ROS Other: All systems not noted in ROS Statement are negative. EKG Findings - EKG Comments: EKG Findings:: EKG interpreted by me, EKG obtained due to complaint of chest pain EKG obtained at 1:19 AM rate of 65 rhythm is sinus normal axis, normal intervals, [place] with 206 QRS 77 QTc 421 there is no acute ST elevation or depression there is no evidence of ischemia or infarction. Past Medical History Past Medical History: Asthma, Chest Pain / Angina, Heart Failure, COPD, Diabetes Mellitus, Eye Disorder, Hypertension, Osteoarthritis (OA), Vascular Disorder Additional Past Medical History / Comment(s): VASCULITIS STATES IN REMISSION, NEUROPATHY TIESHA LEGS, LIMITED VISION TIESHA EYES, EDEMA TIESHA LEGS, SOB WITH ACTIVITY, HX OF ACUTE RENAL FAILURE, HAS RECENTLY BEEN PUT ON FLUID RESTRICTIONS History of Any Multi-Drug Resistant Organisms: None Reported Past Surgical History: Cholecystectomy, Heart Catheterization, Orthopedic Surgery Additional Past Surgical History / Comment(s): ARTHOSCOPY TIESHA KNEES, WRIST SX, CATARACT SX TIESHA, SKIN BX Past Anesthesia/Blood Transfusion Reactions: No Reported Reaction Additional Past Anesthesia/Blood Transfusion Reaction / Comment(s): STATES "HARD TIME WAKING UP" Date of Last Stent Placement:: 2013 Past Psychological History: Anxiety, Depression Smoking Status: Never smoker Past Alcohol Use History: None Reported Past Drug Use History: None Reported - Past Family History Mother Family Medical History: No Reported History General Exam - General Exam Comments Initial Comments: Physical Exam GENERAL: Morbidly obese female no acute distress HENT: Normocephalic, Atraumatic. EYES: PERRL, EOMI PULMONARY: Unlabored respirations. CARDIOVASCULAR: RRR Warm and well perfused extremities ABDOMEN: Non-distended SKIN: No rashes or bruising : Deferred NEUROLOGIC: Alert and oriented MUSCULOSKELETAL: Moving all extremities with no apparent injury PSYCHIATRIC: No SI/HI Limitations: no limitations Course Vital Signs 03/30/24 03/30/24 03/30/24 00:04 01:12 04:00 Temperature 97.5 F L Pulse Rate 71 66 67 Respiratory 18 18 18 Rate Blood Pressure 121/74 131/67 103/61 O2 Sat by Pulse 95 97 91 L Oximetry Chest Pain MDM - MDM Was pt. sent in by a medical professional or institution (MAISHA Villeda, TRANSFORMER REPAIRER, urgent care, hospital, or intermediate...) When possible be specific @ -[No] Did you speak to anyone other than the patient for history (EMS, parent, family, police, friend...)? What history was obtained from this source @ -[No] Did you review nursing and triage notes (agree or disagree)? Why? @ -[I reviewed and agree with nursing and triage notes] Were old charts reviewed (outside hosp., previous admission, EMS record, old EKG, old radiological studies, urgent care reports/EKG's, intermediate records)? Report findings @ -[No old charts were reviewed] Differential Diagnosis (chest pain, altered mental status, abdominal pain women, abdominal pain men, vaginal bleeding, weakness, fever, dyspnea, syncope, headache, dizziness, GI bleed, back pain, seizure, CVA, palpatations, mental health)? @ -Differential Chest Pain: Stable Angina, Unstable Angina, STEMI, NSTEMI Aortic Dissection, Pneumothorax, Musculoskeletal, Esophageal Spasm GERD, Cholecystitis, Pancreatitis, Zoster, this is not meant to be an all-inclusive list. EKG interpreted by me (3pts min.). @ -[As above] X-rays interpreted by me (1pt min.). @ -Chest x-ray with no acute findings CT interpreted by me (1pt min.). @ -[None done] U/S interpreted by me (1pt. min.). @ -[None done] What testing was considered but not performed or refused? (CT, X-rays, U/S, labs)? Why? @ -[None] What meds were considered but not given or refused? Why? @ -[None] Did you discuss the management of the patient with other professionals (professionals i.e. , PA, TRANSFORMER REPAIRER, lab, RT, psych nurse, social media marketing specialist, hazardous waste management specialist, teacher, parole or probation officer, lead case manager)? Give summary @ -[No] Was smoking cessation discussed for >3mins.? @ -[No] Was critical care preformed (if so, how long)? @ -[No] Were there social determinants of health that impacted care today? How? (Homelessness, low income, unemployed, alcoholism, drug addiction, transportation, low edu. Level, literacy, decrease access to med. care, penitentiary, rehab)? @ -[No] Was there de-escalation of care discussed even if they declined (Discuss DNR or withdrawal of care, Hospice)? DNR status @ -[No] What co-morbidities impacted this encounter? (DM, HTN, Smoking, COPD, CAD, Cancer, CVA, ARF, Chemo, Hep., AIDS, mental health diagnosis, sleep apnea, morbid obesity)? @ -[None] Was patient admitted / discharged? Hospital course, mention meds given and route, prescriptions, significant lab abnormalities, going to OR and other pertinent info. @ -Discharged Patient with chronic chest pain, anxious about recent episodes of palpitations. Undiagnosed new problem with uncertain prognosis? @ -[No] Drug Therapy requiring intensive monitoring for toxicity (Heparin, Nitro, Insulin, Cardizem)? @ -[No] Were any procedures done? @ -[No] Diagnosis/symptom? @ -[default] Acute, or Chronic, or Acute on Chronic? @ -[default] Uncomplicated (without systemic symptoms) or Complicated (systemic symptoms)? @ -[default] Side effects of treatment? @ -[No] Exacerbation, Progression, or Severe Exacerbation? @ -[No] Poses a threat to life or bodily function? How? (Chest pain, [place], [place], pneumonia, PE, COPD, DKA, ARF, appy, cholecystitis, CVA, Diverticulitis, Homicidal, Suicidal, threat to staff... and all critical care pts) @ -[No] Disposition Clinical Impression: Atypical chest pain Disposition: HOME SELF-CARE Condition: Stable Instructions (If sedation given, give patient instructions): Chest Pain (ED) Is patient prescribed a controlled substance at d/c from ED?: No Referrals: Elsa Cedeño MD [Primary Care Provider] - 1-2 days
--- NOTE | 2024-03-30 02:08 | XR ---
EXAM: XR Chest, 2 Views CLINICAL HISTORY: Chest Pain TECHNIQUE: Frontal and lateral views of the chest. COMPARISON: Chest single view dated 02/24/2024 FINDINGS: Lungs: Slightly diminished lung volumes. No focal airspace consolidation. No radiographic evidence for florid CHF. Pleural space: Unremarkable. No pneumothorax. No large pleural effusion. Heart: The cardiac silhouette is stable and thought to be within normal limits, accounting for AP technique and overlying soft tissues. Mediastinum: The medial cell contours are stable and unremarkable. The trachea is midline. Bones/joints: Unremarkable. No acute fracture. IMPRESSION: No acute cardiopulmonary process or significant alteration from the prior examination.
[2024-03-30 02:23] LABS: ALT 24 U/L (4-34); AST 33 U/L (14-36); African American GFR (CKD) >90 (>60 ml/min/1.73 sqM); Albumin 4.1 g/dL (3.5-5.0); Alkaline Phosphatase 92 U/L (38-126); Anion Gap 8 mmol/L; Blood Urea Nitrogen 6 mg/dL (7-17); Calcium 9.2 mg/dL (8.4-10.2); Carbon Dioxide 27 mmol/L (22-30); Chloride 97 mmol/L (98-107); Glucose 101 mg/dL (74-99); Magnesium 1.8 mg/dL (1.6-2.3); Non-African American GFR(CKD) >90 (>60 ml/min/1.73 sqM); Sodium 132 mmol/L (137-145); Total Bilirubin 0.6 mg/dL (0.2-1.3); Total Protein 6.6 g/dL (6.3-8.2)
[2024-03-30 06:36] VITALS: BP 125/62; PULSE 72
== END 2024-03-30 06:51 | disposition home or self-care (01) ==
LOC: EC 00:03
DX: R07.89 Other chest pain (principal); Z88.1 Allergy status to other antibiotic agents; Z88.2 Allergy status to sulfonamides; Z88.5 Allergy status to narcotic agent
CPT/HCPCS: 36415; 71046; 80053; 83735; 84484; 85025; 85610; 85730; 93005; 99285